=== PATIENT | male | born 1995 | race Caucasian/White ===

== ENCOUNTER 2016-12-03 05:54 | Emergency (ER) | payer OTHER ==
[2016-12-03 06:01] VITALS: PULSE 54; RESP 20; TEMP 97
[2016-12-03 06:02] VITALS: BP 121/69
--- NOTE | 2016-12-03 06:14 | ED ---
General Adult HPI - General Chief complaint: Skin/Abscess/Foreign Body Stated complaint: BUG BITES Time Seen by Provider: 12/03/16 06:00 Source: patient, RN notes reviewed Mode of arrival: ambulatory Limitations: no limitations - History of Present Illness Initial comments: This is a 21-year-old male who presents to the emergency department complaining that he has some itching on his right forearm and anterior shins bilaterally. Patient states he thinks the house he stated that might of had bedbugs. Patient states he did not see any bugs but someone else in the house that they did. Patient denies seeing any bugs on his body. Patient also complains of sore throat and some tooth pain. Patient states she has severe dental caries and is supposed to have his teeth pulled. She denies any fever. Patient states he does feel some inflamed lymph nodes in his neck. Patient denies any fever chills. Patient denies any other symptoms at this time. - Related Data Previous Rx's Medication Instructions Recorded Amoxicillin 500 mg PO Q8H #30 capsule 12/03/16 Allergies Allergy/AdvReac Type Severity Reaction Status Date / Time venom-honey bee Allergy Swelling Verified 12/03/16 06:01 [bee venom (honey bee)] Review of Systems ROS Statement: Those systems with pertinent positive or pertinent negative responses have been documented in the HPI. ROS Other: All systems not noted in ROS Statement are negative. Past Medical History Past Medical History: No Reported History Additional Past Medical History / Comment(s): ADHD History of Any Multi-Drug Resistant Organisms: None Reported Past Surgical History: No Surgical Hx Reported Past Psychological History: ADD/ADHD, Anxiety, Bipolar, Depression, Schizophrenia Smoking Status: Current every day smoker Past Alcohol Use History: None Reported Past Drug Use History: Marijuana General Exam - General Exam Comments Initial Comments: GENERAL: Patient is well-developed and well-nourished. Patient is nontoxic and well- hydrated and is in mild distress. ENT: Neck is soft and supple. No significant lymphadenopathy is noted. Oropharynx is clear. Moist mucous membranes. Patient's teeth have severe caries a few are very tender. EYES: The sclera were anicteric and conjunctiva were pink and moist. Extraocular movements were intact and pupils were equal round and reactive to light. Eyelids were unremarkable. PULMONARY: Unlabored respirations. Good breath sounds bilaterally. No audible rales rhonchi or wheezing was noted. CARDIOVASCULAR: There is a regular rate and rhythm without any murmurs gallops or rubs. ABDOMEN: Soft and nontender with normal bowel sounds. No palpable organomegaly was noted. There is no palpable pulsatile mass. SKIN: Patient has some areas of superficial abrasions appears to be from scratching on the right forearm and anterior shins bilaterally NEUROLOGIC: Patient is alert and oriented x3. Cranial nerves II through XII are grossly intact. Motor and sensory are also intact. Normal speech, volume and content. Symmetrical smile. MUSCULOSKELETAL: Normal extremities with adequate strength and full range of motion. No lower extremity swelling or edema. No calf tenderness. LYMPHATICS: No significant lymphadenopathy is noted PSYCHIATRIC: Normal psychiatric evaluation. Limitations: no limitations Course Vital Signs 12/03/16 05:55 Temperature 97 F L Pulse Rate 54 L Respiratory 20 Rate Blood Pressure 121/69 O2 Sat by Pulse 98 Oximetry Disposition Clinical Impression: Dental infection Disposition: HOME SELF-CARE Instructions: Dental Caries (ED), Toothache (ED) Prescriptions: Amoxicillin 500 mg PO Q8H #30 capsule Referrals: Brett Rodriguez DO [Primary Care Provider] - 1-2 days Time of Disposition: 06:13
== END 2016-12-03 06:20 | disposition home or self-care (01) ==
LOC: EC 05:54
DX: S50.811A Abrasion of right forearm, initial encounter (principal); S80.811A Abrasion, right lower leg, initial encounter; S80.812A Abrasion, left lower leg, initial encounter; K04.7 Periapical abscess without sinus; K02.9 Dental caries, unspecified; J02.9 Acute pharyngitis, unspecified; F17.200 Nicotine dependence, unspecified, uncomplicated; Z91.030 Bee allergy status; W57.XXXA Bitten or stung by nonvenomous insect and other nonvenomous arthropods, initial encounter
CPT/HCPCS: 99282

== ENCOUNTER 2017-01-02 01:16 | Emergency (ER) | payer OTHER ==
[2017-01-02 01:22] VITALS: RESP 18
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
--- NOTE | 2017-01-02 03:57 | CT ---
EXAM: CT Head Without Intravenous Contrast. CLINICAL HISTORY: Reason: Pain TECHNIQUE: Axial computed tomography images of the head/brain without intravenous contrast. CTDI is by 7.4 mGy and DLP is 995.5 mGy-cm This CT exam was performed using one or more of the following dose reduction techniques: automated exposure control, adjustment of the mA and/or kV according to patient size, and/or use of iterative reconstruction technique. COMPARISON: CT dated 03/08/2016 FINDINGS: Brain: Unremarkable. No hemorrhage. No significant white matter disease. No edema. Ventricles: Unremarkable. No ventriculomegaly. Bones/joints: Unremarkable. No acute fracture. Soft tissues: Unremarkable. Sinuses: Unremarkable as visualized. No acute sinusitis. Mastoid air cells: Unremarkable as visualized. No mastoid effusion. IMPRESSION: Normal head/brain CT. EXAM: CT Cervical Spine Without Intravenous Contrast. CLINICAL HISTORY: Reason: Pain TECHNIQUE: Axial computed tomography images of the cervical spine without intravenous contrast. CTDI is 14.1 mGy and DLP is 321.2 mGy-cm This CT exam was performed using one or more of the following dose reduction techniques: automated exposure control, adjustment of the mA and/or kV according to patient size, and/or use of iterative reconstruction technique. COMPARISON: CT dated 03/08/2016 FINDINGS: Vertebrae: Reversal the normal cervical lordosis, likely positional. No acute fracture. Discs/spinal canal/neural foramina: No acute findings. No spinal canal stenosis. Soft tissues: Unremarkable. Lung apices: Biapical pleural-parenchymal scarring. IMPRESSION: No acute findings.
[2017-01-02 04:06] VITALS: BP 118/61; PULSE 78; TEMP 97.9
== END 2017-01-02 04:06 | disposition home or self-care (01) ==
LOC: EC 01:16
DX: S16.1XXA Strain of muscle, fascia and tendon at neck level, initial encounter (principal); S00.03XA Contusion of scalp, initial encounter; R11.2 Nausea with vomiting, unspecified; F17.200 Nicotine dependence, unspecified, uncomplicated; Z91.030 Bee allergy status; X58.XXXA Exposure to other specified factors, initial encounter
CPT/HCPCS: 70450; 72125; 99284

== ENCOUNTER 2017-02-16 03:00 | Emergency (ER) | payer OTHER ==
[2017-02-16 03:09] VITALS: PULSE 54; RESP 16
[2017-02-16] MEDS ORDERED: IBUPROFEN 600 MG STARTER PACK 4 TAB BTL PO STA (03:30)
[2017-02-16] MEDS ORDERED: ACETAMINOPHEN TAB 500 MG TAB PO STA (03:30)
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
--- NOTE | 2017-02-16 04:33 | CT ---
EXAM: CT Head Without Intravenous Contrast CLINICAL HISTORY: Reason: Pain TECHNIQUE: Axial computed tomography images of the head/brain without intravenous contrast. Coronal and sagittal reformats were obtained. CTDI is 57.40 MGy and DLP is 1544 mGy-cm. This CT exam was performed using one or more of the following dose reduction techniques: automated exposure control, adjustment of the mA and/or kV according to patient size, and/or use of iterative reconstruction technique. COMPARISON: CT head 03/08/16 FINDINGS: Brain: Unremarkable. No hemorrhage. No significant white matter disease. No edema. Ventricles: Unremarkable. No ventriculomegaly. Bones/joints: Unremarkable. No acute fracture. Soft tissues: Left parietal scalp contusion. Sinuses: Unremarkable as visualized. No acute sinusitis. Mastoid air cells: Unremarkable as visualized. No mastoid effusion. IMPRESSION: 1. No acute intracranial abnormality. 2. Left parietal scalp contusion. No skull fracture.
--- NOTE | 2017-02-16 04:40 | CT ---
EXAM: CT Maxillofacial Without Intravenous Contrast CLINICAL HISTORY: Reason: Pain TECHNIQUE: Axial computed tomography images of the face without intravenous contrast. Coronal and sagittal reformats were obtained. CTDI is 30.60 MGy and DLP is 514.10 MGy-cm. This CT exam was performed using one or more of the following dose reduction techniques: automated exposure control, adjustment of the mA and/or kV according to patient size, and/or use of iterative reconstruction technique. COMPARISON: No relevant prior studies available. FINDINGS: Bones/joints: No acute fracture. Soft tissues: Unremarkable. Orbits: Unremarkable. Sinuses: No air-fluid levels. IMPRESSION: Unremarkable maxillofacial CT.
[2017-02-16 05:26] VITALS: BP 102/50; TEMP 97.6
== END 2017-02-16 05:31 | disposition home or self-care (01) ==
LOC: EC 03:00
DX: S05.12XA Contusion of eyeball and orbital tissues, left eye, initial encounter (principal); R51 Headache; F17.200 Nicotine dependence, unspecified, uncomplicated; Z91.030 Bee allergy status; W10.9XXA Fall (on) (from) unspecified stairs and steps, initial encounter; W22.09XA Striking against other stationary object, initial encounter
CPT/HCPCS: 70450; 70486; 99284

== ENCOUNTER 2017-04-20 06:48 | Emergency (ER) | payer OTHER ==
[2017-04-20 07:41] VITALS: RESP 18
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
[2017-04-20 08:35] LABS: Appearance,Urine Clear (Clear); Bilirubin,Urine Negative (Negative); Glucose,Urine (UA) Negative (Negative); Ketones,Urine 1+ (Negative); Leukocyte Esterase,Urine Negative (Negative); Nitrite,Urine Negative (Negative); Protein,Urine Trace (Negative); Specific Gravity,Urine 1.017 (1.001-1.035); UA Billing (MACRO vs. MICRO) CHEM; Urobilinogen,Urine <2.0 mg/dL (<2.0)
--- NOTE | 2017-04-20 09:01 | US ---
EXAMINATION TYPE: US scrotum with doppler. Grayscale and color Doppler Duplex imaging performed of tamela durant scrotum. DATE OF EXAM: 04/20/2017 COMPARISON: NONE CLINICAL HISTORY: Pain. Left scrotal pain and swelling per patient, states known hernia but not seen during scan EXAM MEASUREMENTS: TESTICLES: Right Testicle: 4.1 x 3.2 x 2.6 cm Left Testicle: 4.7 x 3.0 x 2.5 cm EPIDIDYMIS HEAD: Right Epididymis: 0.8 cm Left Epididymis: 1.0 cm, 0.5cm epididymal cyst seen Doppler performed to assess for testicular vascularity; good bilateral color flow and waveforms are s een. There is no evidence of testicular torsion. Presence of hydroceles: mild on the left Presence of varicoceles: no IMPRESSION: 1. No evidence of testicular torsion during the examination. 2. Incidental note of a benign 5 mm left epididymal cyst. 3. Trace left hydrocele.
[2017-04-20 09:18] VITALS: BP 113/57; PULSE 48; TEMP 97.7
== END 2017-04-20 09:13 | disposition home or self-care (01) ==
LOC: EC 06:48
DX: N50.3 Cyst of epididymis (principal); F17.200 Nicotine dependence, unspecified, uncomplicated; Z91.030 Bee allergy status
CPT/HCPCS: 76870; 81003; 87086; 87491; 87591; 93975; 99284

== ENCOUNTER 2017-04-27 12:40 | Emergency (ER) | payer OTHER ==
[2017-04-27 12:46] VITALS: BP 136/61; PULSE 63; RESP 20; TEMP 98.1
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
== END 2017-04-27 14:25 | disposition left against medical advice (07) ==
LOC: EC 12:40
DX: F32.9 Major depressive disorder, single episode, unspecified (principal); F17.200 Nicotine dependence, unspecified, uncomplicated; Z91.030 Bee allergy status; Z53.29 Procedure and treatment not carried out because of patient's decision for other reasons
CPT/HCPCS: 80306; 82075; 99284

== ENCOUNTER 2017-05-16 23:50 | Inpatient (IN) | payer MEDICAID, OTHER ==
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
[2017-05-17] MEDS ORDERED: MAG HYDROX/AL HYDROX/SIMETH 30 ML CUP PO PRN (02:13)
[2017-05-17] MEDS ORDERED: MAGNESIUM HYDROXIDE 2,400 MG/10 ML CUP PO PRN (02:13)
[2017-05-17] MEDS ORDERED: ZIPRASIDONE 20 MG VIAL IM PRN (02:13)
[2017-05-17] MEDS ORDERED: LORazepam 2 MG/ML SYRINGE IM PRN (02:21)
[2017-05-17] MEDS ORDERED: NICOTINE 14MG/24HR PATCH TRANSDERM SCH (09:00)
[2017-05-17] MEDS: risperiDONE 0.5 MG TAB PO SCH ×2 (13:11→20:53)
[2017-05-17] MEDS: NICOTINE POLACRILEX 2 MG GUM BUCCAL PRN ×2 (13:32→20:53)
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
[2017-05-17] MEDS ORDERED: NICOTINE 21MG/24HR PATCH TRANSDERM SCH (14:00)
[2017-05-17] MEDS: traZODone HCL 50 MG TAB PO SCH (20:53)
[2017-05-17 21:24] VITALS: BMI 19.5
[2017-05-18] MEDS: NICOTINE POLACRILEX 2 MG GUM BUCCAL PRN (08:32)
[2017-05-18] MEDS: risperiDONE 0.5 MG TAB PO SCH ×2 (08:32→20:57)
[2017-05-18 08:42] LABS: Basophils # (A) 0.1 k/uL (0-0.2); Basophils % (A) 1 %; CH 33.5; CHCM 35.9; Eosinophils # (A) 0.4 k/uL (0-0.7); Eosinophils % (A) 6 %; HCT 46.6 % (39.0-53.0); HDW 2.42; HGB 16.3 gm/dL (13.0-17.5); Luc # (Auto) 0.12; Luc % (Auto) 2; Lymphocytes # (A) 2.1 k/uL (1.0-4.8); Lymphocytes % (A) 35 %; MCH 32.8 pg (25.0-35.0); MCV 93.7 fL (80.0-100.0); Mean Platelet Volume 7.7; Monocytes # (A) 0.4 k/uL (0-1.0); Monocytes % (A) 6 %; Neutrophils % (A) 50 %; RBC 4.97 m/uL (4.30-5.90); RDW 13.2 % (11.5-15.5); WBC 6.1 k/uL (3.8-10.6); WBC (Perox) 5.67
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
[2017-05-18 09:04] LABS: Anion Gap 9 mmol/L; Blood Urea Nitrogen 12 mg/dL (9-20); Calcium 9.4 mg/dL (8.4-10.2); Carbon Dioxide 25 mmol/L (22-30); Chloride 107 mmol/L (98-107); Glucose 77 mg/dL (74-99); Non-African American GFR(MDRD) >60 (>60 ml/min/1.73 sqM); Potassium 4.9 mmol/L (3.5-5.1); Sodium 141 mmol/L (137-145)
--- NOTE | 2017-05-18 13:17 | P.PN ---
Progress Note - Text Interval History: This is a 21-year-old male who was seen today and reports that he is doing slightly better, he states that the auditory hallucinations have decreased a bit but he did have one "paranoia" yesterday but states he was able to not act on his thoughts that people were talking about him. Patient reports that he slept well last evening and is eating well. He states he is less angry and irritable. He denies any suicidal or homicidal thoughts currently. He reports no side effects from the medication. Mental Status: Appearance/Attitude: Patient is appropriately dressed, makes good eye contact and is cooperative. Behavior: Patient does not display any psychomotor agitation or retardation. Speech/Language: Patient's speech is spontaneous and of normal volume and rhythm and he is coherent. Thought Process: Patient was goal-directed and there is no evidence of circumstantial or tangential thought and no loose associations or flight of ideas. Thought Content: Patient denies any visual hallucinations, he states his auditory hallucinations have decreased a bit. He states he had one episode yesterday where he thought people were talking about him but was able to not act on the thoughts and see that it was not true. Patient states that he is less angry and irritable. He reports he is sleeping well and eating well. Suicidal/Homicidal Ideation: Patient denies any suicidal or homicidal ideation currently. Sensorium/Cognition: Patient is alert and oriented to person, place, and time and his memory is grossly intact. Mood/Affect: Patient's mood is less guarded and his affect is appropriate. Insight/Judgement: Patient's insight and judgment are limited. Assessment: Patient reports improvement with the beginning of Risperdal and trazodone, he slept better and states the auditory hallucinations are decreasing and he is able to question the paranoid ideation that he occasionally has. Patient reports no side effects from the medication. He is less angry and irritable on the unit and has been attending groups and activities. Plan: Patient and I discussed continuing Risperdal 0.5 mg twice a day and if the auditory hallucinations persist over the weekend escape dose can be increased. Patient is on trazodone 50 mg for sleep and he reports he slept well. Patient continues to require hospitalization to further stabilize his mood and psychotic symptoms.
[2017-05-18] MEDS: LORazepam 1 MG TAB PO PRN (20:57)
[2017-05-18] MEDS: traZODone HCL 50 MG TAB PO SCH (20:57)
[2017-05-18] MEDS: ACETAMINOPHEN TAB 325 MG TAB PO PRN (21:24)
[2017-05-19] MEDS: risperiDONE 0.5 MG TAB PO SCH (08:52)
[2017-05-19] MEDS: ACETAMINOPHEN TAB 325 MG TAB PO PRN (11:27)
[2017-05-19 11:47] LABS: Appearance,Urine Clear (Clear); Bilirubin,Urine Negative (Negative); Glucose,Urine (UA) Negative (Negative); Ketones,Urine Negative (Negative); Leukocyte Esterase,Urine Negative (Negative); Nitrite,Urine Negative (Negative); PH, Urine 6.5 (5.0-8.0); Protein,Urine Negative (Negative); Specific Gravity,Urine 1.003 (1.001-1.035); UA Billing (MACRO vs. MICRO) CHEM; Urobilinogen,Urine <2.0 mg/dL (<2.0)
[2017-05-19] MEDS: LORazepam 1 MG TAB PO PRN (17:39)
[2017-05-19] MEDS: traZODone HCL 50 MG TAB PO SCH (20:49)
[2017-05-19] MEDS: risperiDONE 2 MG TAB PO SCH (20:50)
--- NOTE | 2017-05-20 07:42 | PN ---
PROGRESS NOTE DATE OF SERVICE: 05/19/2017. CHIEF COMPLAINT: The patient was admitted due to auditory hallucinations. He had a poor appetite. He did not feel safe around others as he said he was afraid he will "go off on them." He felt there was "serious things" though could not elaborate. INTERVAL HISTORY: The patient has been doing fair. He had he had some difficulty last evening. He said "my paranoia kicked in." He described having auditory hallucinations. He says there are times when the hallucinations quiet down and then times when they seem to catch up with him. He did receive Haldol and Ativan yesterday. He feels since then he has been doing better. When seen by Dr. Tapia yesterday she felt he had shown some improvement and that he was reporting a decrease in auditory hallucinations and decrease in paranoia. He has been attending groups. He has been on appropriate in his behavior. He continues to say that hallucinations and poor paranoia come and go for him. While he says that he is feeling better, he believes that an increase in his medication that could help. He has not had change in his general health. He tolerates his psychotropic medications. MENTAL STATUS: Patient gave good eye contact. Psychomotor activity was a little restless. Speech was clear. He answered questions with direct responses. His affect was a little constricted. His mood was quiet. He did appear to be distressed. There was no outward signs of thought disorder. ASSESSMENT: I will continue the current diagnosis and the treatment plan. I will increase his Risperdal to 2 mg twice a day. The patient has been making progress and is hopeful to be discharged sometime toward the middle of next week. MMODL / IJN: [id number] /
[2017-05-20] MEDS: risperiDONE 2 MG TAB PO SCH ×2 (08:25→20:02)
--- NOTE | 2017-05-20 14:36 | PN ---
PROGRESS NOTE DATE OF SERVICE: 05/20/2017 CHIEF COMPLAINT: The patient was admitted due to auditory hallucinations. He had poor appetite. He did not feel safe around others as he said he was afraid he will "go off on them." He felt there was "serious things" although he could not elaborate. INTERVAL HISTORY: Patient has been doing fairly well. He does have some inappropriate behavior where he can get impulsive and intense. For the most part, he responds well to staff support. He says that he had a fairly good evening last evening. He slept well last night. Today he has been up. He has been attending groups. He says he feels much better. He thinks that most of his hallucinations have quieted down. He has a very positive outlook. He has been cooperative. He comes out in the day area. He socializes with others. He has not had change in his general health. He tolerates his psychotropic medications. MENTAL STATUS: Patient gave good eye contact. Psychomotor activity was a little restless. His thoughts were clear. He has a good range of affect. He smiled. His mood was even. He was not distressed. ASSESSMENT: I will continue the current diagnosis and treatment plan. I will continue psychotropic medications the same. Patient appears to be making progress. I would look to discharge the patient early in the week. If he continues to do well. MMGUANAKITOL / ROBERTN: [id number] /
[2017-05-20] MEDS: LORazepam 1 MG TAB PO PRN (17:21)
[2017-05-20] MEDS: NICOTINE POLACRILEX 2 MG GUM BUCCAL PRN (17:21)
[2017-05-20] MEDS: traZODone HCL 50 MG TAB PO SCH (20:02)
[2017-05-20] MEDS ORDERED: RX INFO: IV CONTRAST WAS GIVEN 1 EACH MISC MISCELLANE PRN ×2 (21:53→21:57)
[2017-05-20] MEDS ORDERED: IOHEXOL 350 MG/ML 25 ML BOTTLE (ORAL USE) PO PRN (21:57)
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
[2017-05-21 06:35] VITALS: TEMP 97.6
[2017-05-21] MEDS: risperiDONE 2 MG TAB PO SCH ×2 (08:50→20:01)
--- NOTE | 2017-05-21 11:43 | P.PN ---
Progress Note - Text Interval History: Patient is a 21-year-old male who was seen today and his medications have been increased and he reports that he is doing much better. He reports that he is no longer hearing voices and is feeling calm and his thinking is much clearer. He states he is no longer feeling angry and has not gotten into any arguments with anyone while he is been on the inpatient unit. He reports that he is not feeling depressed and has no suicidal thoughts. States he is sleeping well and is interested in returning to live with his grandmother. Patient reports no side effects from the medication. Mental Status: Appearance/Attitude: Patient is appropriately dressed, makes intermittent eye contact and is cooperative. Behavior: Patient does not display any psychomotor agitation or retardation. Speech/Language: Patient's speech is spontaneous and of normal volume and rhythm and he is coherent. Thought Process: Patient is goal-directed, is no evidence of circumstantial or tangential thought and no loose associations or flight of ideas. Thought Content: Patient denies any auditory or visual hallucinations, no paranoid or delusional ideation was elicited. Patient states he is thinking much clearer, he is not having any feelings of anger and states he has not been arguing with anyone. He reports he is eating and sleeping well. Suicidal/Homicidal Ideation: Patient denies any current suicidal or homicidal ideation. Sensorium/Cognition: Patient is alert and oriented to person, place, and time and his memory is grossly intact. Mood/Affect: Patient's mood is euthymic and his affect is appropriate. Insight/Judgement: Patient's insight and judgment are limited. Assessment: Patient reports doing better on the increase in the Risperdal and thinks this was his prior dose. He states he is sleeping and eating well. Patient reports no longer having any auditory hallucinations and no feelings of anger. He states he is no longer feeling depressed and has no current suicidal thoughts. Patient reports no complaints of side effects from the medication. Patient has been attending groups and activities. Plan: Patient will continue on Risperdal 2 mg twice a day and trazodone 50 mg at bedtime. Patient and I discussed discharge either Sunday or Sunday with follow-up at [facility]. Patient has a guardian and states he will return to live with his grandmother.
[2017-05-21] MEDS: LORazepam 1 MG TAB PO PRN (19:43)
[2017-05-21] MEDS: traZODone HCL 50 MG TAB PO SCH (20:01)
[2017-05-22] MEDS: risperiDONE 2 MG TAB PO SCH (09:15)
[2017-05-22 09:17] VITALS: BP 108/57; PULSE 103; RESP 18
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
== END 2017-05-22 11:52 | disposition home or self-care (01) | DRG 885 ==
LOC: EC 23:50 → 3MHU 05-17 02:01
PROVIDERS: ADMIT Psychiatry & Neurology Psychiatry; ATTEND Psychiatry & Neurology Psychiatry
DX: F34.81 Disruptive mood dysregulation disorder (principal); R45.851 Suicidal ideations; F32.9 Major depressive disorder, single episode, unspecified; F12.988 Cannabis use, unspecified with other cannabis-induced disorder; F17.210 Nicotine dependence, cigarettes, uncomplicated; F41.9 Anxiety disorder, unspecified; Z91.5 Personal history of self-harm; K40.90 Unilateral inguinal hernia, without obstruction or gangrene, not specified as recurrent; G47.00 Insomnia, unspecified
CPT/HCPCS: 80048; 80306; 81003; 82075; 84443; 85025; 99285

== ENCOUNTER 2017-06-03 07:11 | Emergency (ER) | payer OTHER ==
[2017-06-03 07:24] VITALS: BP 123/70; PULSE 70; RESP 20; TEMP 97.8
[2017-06-03] MEDS ORDERED: IBUPROFEN 800 MG TAB PO STA (07:37)
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
--- NOTE | 2017-06-03 08:14 | XR ---
EXAMINATION TYPE: XR chest 2V DATE OF EXAM: 06/03/2017 HISTORY: cough. REFERENCE: Previous study dated 07/01/2012. FINDINGS: The lungs are clear. Pleural spaces are clear. Heart size is normal. IMPRESSION: NORMAL CHEST.
--- NOTE | 2017-06-03 08:14 | XR ---
EXAMINATION TYPE: XR clavicle RT , 2 VIEWS DATE OF EXAM ORDERED: 06/03/2017 HISTORY: Pain. COMPARISON: None. FINDINGS: No fracture or other acute abnormality is seen. The coracoclavicular distance is normal. IMPRESSION: NORMAL RIGHT SHOULDER.
--- NOTE | 2017-06-03 08:16 | XR ---
EXAMINATION TYPE: XR scapula RT , 2 VIEWS DATE OF EXAM ORDERED: 06/03/2017 HISTORY: Pain. COMPARISON: None. FINDINGS: No fracture, dislocation or other acute osseous lesion is seen. IMPRESSION: NORMAL RIGHT SCAPULA.
--- NOTE | 2017-06-03 08:17 | XR ---
EXAMINATION TYPE: XR shoulder complete RT , 2 VIEWS DATE OF EXAM ORDERED: 06/03/2017 HISTORY: Pain. COMPARISON: None. FINDINGS: No fracture, dislocation or other acute abnormality is seen. The coracoclavicular distance is normal. IMPRESSION: NORMAL RIGHT SHOULDER.
[2017-06-03] MEDS ORDERED: DIPH,PERTUS(ACELL)TETVAC-LF 0.5 ML VIAL IM ONE (08:30)
== END 2017-06-03 08:43 | disposition home or self-care (01) ==
LOC: EC 07:11
DX: S46.911A Strain of unspecified muscle, fascia and tendon at shoulder and upper arm level, right arm, initial encounter (principal); S50.811A Abrasion of right forearm, initial encounter; R40.2412 Glasgow coma scale score 13-15, at arrival to emergency department; F17.200 Nicotine dependence, unspecified, uncomplicated; Z91.030 Bee allergy status; Z53.20 Procedure and treatment not carried out because of patient's decision for unspecified reasons; V18.4XXA Pedal cycle driver injured in noncollision transport accident in traffic accident, initial encounter; Y92.410 Unspecified street and highway as the place of occurrence of the external cause; Y93.55 Activity, bike riding
CPT/HCPCS: 71020; 99283

== ENCOUNTER 2017-09-06 12:50 | Emergency (ER) | payer OTHER ==
[2017-09-06 13:07] VITALS: BP 138/72; PULSE 89; RESP 16; TEMP 97.5
[2017-09-06] MEDS ORDERED: ACETAMINOPHEN TAB 325 MG TAB PO STA (13:16)
[2017-09-06] MEDS ORDERED: IBUPROFEN 600 MG TAB PO STA (13:16)
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
--- NOTE | 2017-09-06 13:53 | XR ---
EXAMINATION TYPE: XR foot complete RT DATE OF EXAM: 09/06/2017 CLINICAL HISTORY: pain TECHNIQUE: Frontal, lateral and oblique images of the right foot are obtained. COMPARISON: None. FINDINGS: There is no acute fracture/dislocation evident. The joint spaces appear within normal álvarez its. The overlying soft tissue appears unremarkable. IMPRESSION: There is no acute fracture or dislocation. ICD 10 NO FRACTURE, INITIAL EVALUATION
== END 2017-09-06 13:59 | disposition home or self-care (01) ==
LOC: EC 12:50
DX: S90.111A Contusion of right great toe without damage to nail, initial encounter (principal); S90.121A Contusion of right lesser toe(s) without damage to nail, initial encounter; F17.200 Nicotine dependence, unspecified, uncomplicated; Z91.030 Bee allergy status; V03.10XA Pedestrian on foot injured in collision with car, pick-up truck or van in traffic accident, initial encounter
CPT/HCPCS: 99283

== ENCOUNTER 2017-09-30 22:11 | Emergency (ER) | payer OTHER ==
[2017-09-30 22:19] VITALS: BP 121/67; PULSE 74; RESP 18
[2017-09-30] MEDS ORDERED: diphenhydrAMINE 50 MG CAP PO STA (22:50)
[2017-09-30] MEDS ORDERED: FAMOTIDINE 20 MG TAB PO STA (22:50)
[2017-09-30] MEDS ORDERED: predniSONE 20 MG TAB PO STA (22:51)
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
[2017-10-01 00:17] VITALS: TEMP 97.5
== END 2017-10-01 00:13 | disposition home or self-care (01) ==
LOC: EC 22:11
DX: L50.9 Urticaria, unspecified (principal); F20.9 Schizophrenia, unspecified; F31.9 Bipolar disorder, unspecified; F17.200 Nicotine dependence, unspecified, uncomplicated; Z91.030 Bee allergy status; Z79.899 Other long term (current) drug therapy
CPT/HCPCS: 99282; J7512

== ENCOUNTER 2017-10-05 18:33 | Emergency (ER) | payer OTHER ==
[2017-10-05 18:40] VITALS: BP 132/70; PULSE 80; RESP 16; TEMP 97.2
[2017-10-05] MEDS ORDERED: PENICILLIN VK 500MG STARTER 4 TAB BTL PO STA (19:04)
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
== END 2017-10-05 19:14 | disposition home or self-care (01) ==
LOC: EC 18:33
DX: K04.7 Periapical abscess without sinus (principal); F12.90 Cannabis use, unspecified, uncomplicated; F17.200 Nicotine dependence, unspecified, uncomplicated; Z91.030 Bee allergy status
CPT/HCPCS: 41800; 99284

== ENCOUNTER 2017-10-08 18:29 | Emergency (ER) | payer OTHER ==
[2017-10-08 19:22] VITALS: RESP 18
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
[2017-10-08 22:21] LABS: Basophils # (A) 0.1 k/uL (0-0.2); Basophils % (A) 1 %; Eosinophils # (A) 0.4 k/uL (0-0.7); Eosinophils % (A) 3 %; HCT 49.9 % (39.0-53.0); HGB 16.8 gm/dL (13.0-17.5); Lymphocytes # (A) 3.2 k/uL (1.0-4.8); Lymphocytes % (A) 27 %; MCH 31.1 pg (25.0-35.0); MCHC 33.7 g/dL (31.0-37.0); MCV 92.3 fL (80.0-100.0); Mean Platelet Volume 6.7; Monocytes # (A) 0.8 k/uL (0-1.0); Monocytes % (A) 7 %; Neutrophils # (A) 7.4 k/uL (1.3-7.7); Neutrophils % (A) 62 %; Platelet Count 367 k/uL (150-450); RDW 12.3 % (11.5-15.5); WBC 11.9 k/uL (3.8-10.6)
[2017-10-08 22:36] LABS: ALT 40 U/L (21-72); AST 32 U/L (17-59); Albumin 5.1 g/dL (3.5-5.0); Alkaline Phosphatase 82 U/L (38-126); Anion Gap 13 mmol/L; Blood Urea Nitrogen 15 mg/dL (9-20); Calcium 10.2 mg/dL (8.4-10.2); Carbon Dioxide 29 mmol/L (22-30); Chloride 99 mmol/L (98-107); Glucose 82 mg/dL (74-99); Potassium 4.3 mmol/L (3.5-5.1); Sodium 141 mmol/L (137-145); Total Bilirubin 0.4 mg/dL (0.2-1.3); Total Protein 8.3 g/dL (6.3-8.2)
[2017-10-08 23:27] VITALS: BP 118/74; PULSE 60; TEMP 97.7
== END 2017-10-08 23:27 | disposition home or self-care (01) ==
LOC: EC 18:29
DX: R25.1 Tremor, unspecified (principal); F17.200 Nicotine dependence, unspecified, uncomplicated; Z91.030 Bee allergy status
CPT/HCPCS: 36415; 80053; 83605; 85025; 99283

== ENCOUNTER 2017-10-11 20:40 | Emergency (ER) | payer OTHER ==
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
[2017-10-11 21:29] VITALS: BP 115/64; PULSE 94; RESP 17; TEMP 98.4
== END 2017-10-11 21:33 | disposition home or self-care (01) ==
LOC: EC 20:40
DX: K04.7 Periapical abscess without sinus (principal); J01.90 Acute sinusitis, unspecified; F20.9 Schizophrenia, unspecified; F31.9 Bipolar disorder, unspecified; F17.200 Nicotine dependence, unspecified, uncomplicated; Z91.030 Bee allergy status; Z79.899 Other long term (current) drug therapy
CPT/HCPCS: 99283

== ENCOUNTER 2017-11-14 04:48 | Emergency (ER) | payer OTHER ==
[2017-11-14] MEDS ORDERED: AMOXICILLIN 875 MG TAB PO STA (05:29)
[2017-11-14] MEDS ORDERED: IBUPROFEN 600 MG TAB PO STA (05:29)
--- NOTE | 2017-11-14 05:42 | CT ---
EXAM: CT Maxillofacial Without Intravenous Contrast CLINICAL HISTORY: ITS.REASON CT Reason: Pain TECHNIQUE: Axial computed tomography images of the face without intravenous contrast. CTDI is 32.10 mGy and DLP is 654.40 mGy-cm. This CT exam was performed using one or more of the following dose reduction techniques: automated exposure control, adjustment of the mA and/or kV according to patient size, and/or use of iterative reconstruction technique. COMPARISON: 02/16/17 FINDINGS: Bones/joints: No acute fracture. Soft tissues: Unremarkable. Orbits: Unremarkable. Sinuses: Mucosal thickening of the left maxillary sinus. No air-fluid levels. Dental: Dental caries noted in the left maxillary teeth. IMPRESSION: No evidence of fracture or bone destruction. Mucosal thickening of the left maxillary sinus suggesting sinusitis. Correlate clinically. Dental caries noted in the left maxillary teeth.
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
[2017-11-14 06:14] VITALS: BP 111/58; PULSE 50; RESP 18; TEMP 97
== END 2017-11-14 06:22 | disposition home or self-care (01) ==
LOC: EC 04:48
DX: J32.0 Chronic maxillary sinusitis (principal); K02.9 Dental caries, unspecified; F20.9 Schizophrenia, unspecified; F31.9 Bipolar disorder, unspecified; F17.200 Nicotine dependence, unspecified, uncomplicated; Z79.899 Other long term (current) drug therapy; Z91.030 Bee allergy status
CPT/HCPCS: 70486; 99283

== ENCOUNTER 2017-11-25 19:29 | Emergency (ER) | payer OTHER ==
[2017-11-25 19:55] VITALS: BP 115/60; PULSE 78; RESP 18; TEMP 98
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
== END 2017-11-25 20:15 | disposition home or self-care (01) ==
LOC: EC 19:29
DX: R63.0 Anorexia (principal); F31.9 Bipolar disorder, unspecified; F90.9 Attention-deficit hyperactivity disorder, unspecified type; F41.9 Anxiety disorder, unspecified; F20.9 Schizophrenia, unspecified; F17.200 Nicotine dependence, unspecified, uncomplicated; Z79.899 Other long term (current) drug therapy; Z91.030 Bee allergy status
CPT/HCPCS: 99283

== ENCOUNTER 2017-12-29 02:56 | Emergency (ER) | payer OTHER ==
[2017-12-29] MEDS ORDERED: IBUPROFEN 600 MG TAB PO STA (03:26)
[2017-12-29] MEDS ORDERED: diphenhydrAMINE 25 MG CAP PO STA (03:26)
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
--- NOTE | 2017-12-29 04:33 | XR ---
EXAM: XR Right Ankle Complete, 3 or More Views CLINICAL HISTORY: ITS.REASON XR Reason: Pain TECHNIQUE: Frontal, lateral and oblique views of the right ankle. COMPARISON: None. FINDINGS: Bones/joints: Unremarkable. No acute fracture. No dislocation. Soft tissues: Unremarkable. IMPRESSION: Normal right ankle x-rays.
[2017-12-29 04:39] VITALS: BP 112/68; PULSE 80; RESP 18; TEMP 97.8
== END 2017-12-29 04:46 | disposition home or self-care (01) ==
LOC: EC 02:56
DX: S93.401A Sprain of unspecified ligament of right ankle, initial encounter (principal); T14.8XXA Other injury of unspecified body region, initial encounter; Z71.1 Person with feared health complaint in whom no diagnosis is made; F90.9 Attention-deficit hyperactivity disorder, unspecified type; F31.9 Bipolar disorder, unspecified; F20.9 Schizophrenia, unspecified; F41.9 Anxiety disorder, unspecified; F17.200 Nicotine dependence, unspecified, uncomplicated; Z79.899 Other long term (current) drug therapy; Z91.030 Bee allergy status; W57.XXXA Bitten or stung by nonvenomous insect and other nonvenomous arthropods, initial encounter
CPT/HCPCS: 99283

== ENCOUNTER 2017-12-29 22:03 | Inpatient (IN) | payer MEDICAID, OTHER ==
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
[2017-12-29 22:46] LABS: Amphetamine Screen,Urine Not Detected (NotDetected); Barbiturate Screen,Urine Not Detected (NotDetected); Benzodiazepines Screen,Urine Not Detected (NotDetected); Cocaine Screen,Urine Detected (NotDetected); Methadone Screen, Urine Not Detected (NotDetected); Opiate Screen,Urine Not Detected (NotDetected); Oxycodone Screen, Urine Not Detected (NotDetected); Phencyclidine Screen,Urine Not Detected (NotDetected); Tricyclic Antidepressant,Urine Not Detected (NotDetected); Urn Cannabinoid Scrn Detected (NotDetected)
[2017-12-30] MEDS ORDERED: ACETAMINOPHEN TAB 325 MG TAB PO PRN (01:15)
[2017-12-30] MEDS ORDERED: MAG HYDROX/AL HYDROX/SIMETH 30 ML CUP PO PRN (01:15)
[2017-12-30] MEDS ORDERED: MAGNESIUM HYDROXIDE 2,400 MG/10 ML CUP PO PRN (01:15)
[2017-12-30] MEDS ORDERED: LORazepam 2 MG/ML INJ IM PRN (01:21)
[2017-12-30 02:25] VITALS: BMI 20.2
[2017-12-30] MEDS: NICOTINE 7MG/24HR PATCH TRANSDERM SCH (08:45)
[2017-12-30] MEDS: LORazepam 1 MG TAB PO PRN ×2 (09:41→16:53)
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
[2017-12-30] MEDS: ZIPRASIDONE 20 MG VIAL IM PRN ×2 (17:08→18:19)
[2017-12-30] MEDS: traZODone HCL 50 MG TAB PO SCH (20:04)
[2017-12-30] MEDS: risperiDONE 2 MG TAB PO SCH (20:04)
[2017-12-31] MEDS: risperiDONE 2 MG TAB PO SCH ×3 (01:16→22:17)
[2017-12-31] MEDS: traZODone HCL 50 MG TAB PO SCH ×2 (01:16→22:17)
[2017-12-31] MEDS: LORazepam 1 MG TAB PO PRN ×3 (03:08→15:44)
[2017-12-31] MEDS: NICOTINE 7MG/24HR PATCH TRANSDERM SCH (08:14)
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
[2017-12-31 09:44] LABS: Basophils % (A) 0 %; Eosinophils # (A) 0.3 k/uL (0-0.7); Eosinophils % (A) 3 %; HCT 48.7 % (39.0-53.0); HGB 16.5 gm/dL (13.0-17.5); Lymphocytes # (A) 1.6 k/uL (1.0-4.8); Lymphocytes % (A) 16 %; MCH 31.1 pg (25.0-35.0); MCHC 33.9 g/dL (31.0-37.0); MCV 91.6 fL (80.0-100.0); Mean Platelet Volume 7.5; Monocytes # (A) 0.5 k/uL (0-1.0); Monocytes % (A) 5 %; Neutrophils # (A) 7.4 k/uL (1.3-7.7); Neutrophils % (A) 75 %; Platelet Count 322 k/uL (150-450); RBC 5.31 m/uL (4.30-5.90); RDW 12.3 % (11.5-15.5); WBC 9.9 k/uL (3.8-10.6)
[2017-12-31 10:20] LABS: ALT 25 U/L (21-72); AST 43 U/L (17-59); Albumin 4.9 g/dL (3.5-5.0); Alkaline Phosphatase 74 U/L (38-126); Anion Gap 14 mmol/L; Blood Urea Nitrogen 14 mg/dL (9-20); Calcium 10.3 mg/dL (8.4-10.2); Carbon Dioxide 27 mmol/L (22-30); Chloride 104 mmol/L (98-107); Cholesterol 113 mg/dL (<200); Glucose 109 mg/dL (74-99); HDL Cholesterol 42 mg/dL (40-60); LDL Cholesterol,Calculated 52 mg/dL (0-99); Potassium 4.6 mmol/L (3.5-5.1); Sodium 145 mmol/L (137-145); Total Bilirubin 0.6 mg/dL (0.2-1.3); Total Protein 8.2 g/dL (6.3-8.2); Triglycerides 96 mg/dL (<150)
[2017-12-31 16:27] LABS: Amorphous Sediment,Urine Moderate /hpf; Appearance,Urine Turbid (Clear); Bilirubin,Urine Negative (Negative); Blood,Urine Negative (Negative); Color,Urine Yellow; Glucose,Urine (UA) Negative (Negative); Ketones,Urine Negative (Negative); Leukocyte Esterase,Urine Negative (Negative); Nitrite,Urine Negative (Negative); PH, Urine 7.5 (5.0-8.0); Protein,Urine Trace (Negative); Specific Gravity,Urine 1.023 (1.001-1.035); Urobilinogen,Urine <2.0 mg/dL (<2.0)
[2017-12-31 16:35] LABS: Hepatitis A Antibody IgM Non-Reactive (Non-Reactive); Hepatitis B Core IgM Non-Reactive (Non-Reactive)
[2017-12-31 16:51] LABS: HIV AB P24 Non-Reactive (Non-Reactive); HIV P24 AG Non-Reactive (Non-Reactive)
[2017-12-31 19:43] LABS: Hemoglobin A1C 5.1 % (4.0-6.0)
[2018-01-01 06:37] VITALS: TEMP 97.5
[2018-01-01] MEDS: risperiDONE 2 MG TAB PO SCH ×2 (08:21→20:00)
[2018-01-01] MEDS: NICOTINE 7MG/24HR PATCH TRANSDERM SCH (08:21)
--- NOTE | 2018-01-01 09:47 | P.PN ---
Progress Note - Text Progress Note Date: 01/01/18 Patient was seen for a follow-up examination. He said he has been taking his medications, slept well last night, is not thinking about suicide, does not hear voices anymore etc. He finally agreed to take Risperdal Consta shot since he has not been complying with outpatient treatment. He has been attending his groups and socializes with some of his peers. According to [facility] patient's IQ was estimated at 65. This is a white ambulatory male with fair hygiene. He does not show any psychomotor agitation or retardation. His speech is spontaneous and goal- directed. His mood is euthymic and affect is appropriate to the thought content. He denies hallucinations. But he is still talking about having several holes in his head which has interfered with his memory. He denies suicide and homicide thoughts. He is oriented to the place but not for the time. His calculations are poor. Plan: Continue groups and other therapies. Continue risperidone 2 mg twice a day and trazodone 50 mg at bedtime. Consider Kalpesh Lancaster before he is discharged.
[2018-01-01] MEDS: CLINDAMYCIN 150 MG CAP PO SCH ×2 (17:10→20:01)
[2018-01-01] MEDS: traZODone HCL 50 MG TAB PO SCH (20:01)
[2018-01-02] MEDS: CLINDAMYCIN 150 MG CAP PO SCH ×2 (08:16→14:30)
[2018-01-02] MEDS: risperiDONE 2 MG TAB PO SCH (08:16)
[2018-01-02] MEDS: NICOTINE 7MG/24HR PATCH TRANSDERM SCH (08:16)
[2018-01-02 09:49] VITALS: BP 130/60; PULSE 95; RESP 18
[2018-01-02] MEDS: LORazepam 1 MG TAB PO PRN (10:59)
--- NOTE | 2018-01-02 11:45 | P.DS ---
Providers Date of admission: 12/30/17 00:27 Expected date of discharge: 01/02/18 Attending physician: Janeth Best Consults: 12/30/17 01:15 Consult Physician Routine Consulting Provider: Noa Jaquez Consult Reason/Comments: medical management Do you want consulting provider notified?: Already Contacted Primary care physician: Stated None Hospital Course: Patient had his psychiatric examination, physical examination and psychosocial evaluation. His home medications of risperidone and trazodone were continued after psychiatric examination. Patient did well on these medications without any adverse effects. His mood became euthymic and he became free of suicide thoughts. He also agreed to take Risperdal Consta and he received his first shot of 37.5 mg IM yesterday. He did not have any adverse effects from the medication. He attended groups, socialized with peers and interacted with staff etc. He agreed with his guardian grandmother and the social work specialist to [facility] [place] [facility] a couple of nights and then go back to stay with grandmother. In view of all these it was agreed to discharge him. Apparently he got in touch with the physician who was here to see another patient and reported that he was having tooth ache. He was prescribed clindamycin for case and possible infection.. Condition on discharge: This is a white ambulatory male with adequate hygiene. He does not show any psychomotor agitation or retardation. His speech is spontaneous relevant and goal-directed. His mood is euthymic and affect is appropriate. He denies hallucinations, delusional thinking, suicidal and homicidal thoughts. He is well oriented with adequate memory concentration general fund of knowledge etc. his insight and judgment have improved quite a bit. Diagnosis on discharge: Schizoaffective disorder bipolar type F 25. Cannabis use disorder severe F 12.20. Antisocial personality disorder F 60.2. Borderline intellectual functioning. ALLERGY to bee stings. Dental caries with possible infection. Patient was advised and agreed to take his medications as prescribed, not to drink alcohol or use drugs, learn better coping skills through therapy, to seek drug counseling, not to drive or operate machinery if he feels sleepy, to see the dentist regarding dental caries, to call his psychiatrist or therapist if he develops suicidal or homicidal thoughts and if he cannot get hold of them to go to nearest ER. Plan - Discharge Summary New Discharge Prescriptions: New Clindamycin [Cleocin] 300 mg PO QID 7 Days #28 cap risperiDONE [RisperDAL] 2 mg PO BID 30 Days #60 tab traZODone HCL [Desyrel] 50 mg PO HS 30 Days #30 tab Discontinued traZODone HCL [Desyrel] 100 mg PO HS #30 tab risperiDONE [RisperDAL] 2 mg PO BID@0800,1600 Amoxic-Pot Clav 875-125Mg [Augmentin 875-125] 1 tab PO Q12HR #20 tablet Ibuprofen [Motrin] 600 mg PO Q8HR PRN #24 tab PRN Reason: Pain Amoxic-Pot Clav 875-125Mg [Augmentin 875-125] 1 tab PO Q12HR #20 tablet Oxymetazoline HCl [Afrin 0.05%] 1 spray EA NOSTRIL Q8H #15 ml Ibuprofen [Motrin] 600 mg PO Q8HR PRN #30 tab PRN Reason: Pain Discharge Medication List Clindamycin [Cleocin] 300 mg PO QID 7 Days #28 cap 01/02/18 [Rx] risperiDONE [RisperDAL] 2 mg PO BID 30 Days #60 tab 01/02/18 [Rx] traZODone HCL [Desyrel] 50 mg PO HS 30 Days #30 tab 01/02/18 [Rx] Follow up Appointment(s)/Referral(s): [facility] [Outside] - 1 Week (Please complete walk-in intake within 48 hours of hospital discharge. Hours: Wed, Thurs, Fri 830-3) None,Stated [Primary Care Provider] - 1-2 days
[2018-01-02 16:06] LABS: C. trachomatis,PCR Negative (Neg,Equiv); Chlamydia trachomatis Source Urine; N. gonorrhoeae,PCR Negative (Neg,Equiv); Neisseria Source Urine
== END 2018-01-02 13:55 | disposition home or self-care (01) | DRG 885 ==
LOC: EC 22:03 → 3MHU 12-30 00:27
PROVIDERS: ADMIT Psychiatry & Neurology Psychiatry; ATTEND Psychiatry & Neurology Psychiatry
DX: F25.0 Schizoaffective disorder, bipolar type (principal); R45.851 Suicidal ideations; F34.81 Disruptive mood dysregulation disorder; F17.210 Nicotine dependence, cigarettes, uncomplicated; F60.2 Antisocial personality disorder; K02.9 Dental caries, unspecified; F90.9 Attention-deficit hyperactivity disorder, unspecified type; F41.9 Anxiety disorder, unspecified; I51.7 Cardiomegaly; R41.83 Borderline intellectual functioning; Z79.899 Other long term (current) drug therapy; Z91.030 Bee allergy status; Z65.3 Problems related to other legal circumstances; Z71.6 Tobacco abuse counseling; Z72.51 High risk heterosexual behavior
CPT/HCPCS: 80053; 80061; 80074; 80306; 81001; 82075; 83036; 84443; 85025; 87390; 87491; 87591; 99285

== ENCOUNTER 2018-01-26 09:04 | Emergency (ER) | payer OTHER ==
[2018-01-26 09:14] VITALS: BP 137/77; PULSE 61; RESP 16; TEMP 98
[2018-01-26] MEDS ORDERED: IBUPROFEN 600 MG TAB PO STA (09:37)
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
== END 2018-01-26 09:52 | disposition home or self-care (01) ==
LOC: EC 09:04
DX: K04.7 Periapical abscess without sinus (principal); K02.9 Dental caries, unspecified; F17.200 Nicotine dependence, unspecified, uncomplicated; Z91.030 Bee allergy status
CPT/HCPCS: 99282

== ENCOUNTER 2018-02-26 03:30 | Emergency (ER) | payer OTHER ==
[2018-02-26 03:37] VITALS: BP 154/92; PULSE 44; RESP 18; TEMP 97.8
--- NOTE | 2018-02-26 04:46 | XR ---
EXAMINATION TYPE: XR soft tissue neck DATE OF EXAM: 02/26/2018 COMPARISON: NONE HISTORY: Pain and swelling TECHNIQUE: 2 views FINDINGS: Cervical vertebra have normal alignment. Epiglottis is normal. Prevertebral soft tissues ap pear normal. Subglottic trachea appears normal. IMPRESSION: Negative cervical soft tissue exam.
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
[2018-02-26] MEDS ORDERED: IBUPROFEN 600 MG STARTER PACK 4 TAB BTL PO STA (04:59)
[2018-02-26] MEDS ORDERED: PENICILLIN VK 500MG STARTER 4 TAB BTL PO STA (04:59)
== END 2018-02-26 05:26 | disposition home or self-care (01) ==
LOC: EC 03:30
DX: K02.9 Dental caries, unspecified (principal); F17.200 Nicotine dependence, unspecified, uncomplicated; Z91.030 Bee allergy status
CPT/HCPCS: 70360; 99283

== ENCOUNTER 2018-03-21 00:53 | Emergency (ER) | payer OTHER ==
[2018-03-21 01:04] VITALS: BP 112/65; PULSE 77; RESP 16; TEMP 97.9
[2018-03-21] MEDS ORDERED: PENICILLIN VK 500MG STARTER 4 TAB BTL PO STA (01:45)
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
== END 2018-03-21 02:03 | disposition home or self-care (01) ==
LOC: EC 00:53
DX: S80.262A Insect bite (nonvenomous), left knee, initial encounter (principal); K04.7 Periapical abscess without sinus; K05.10 Chronic gingivitis, plaque induced; S02.5XXA Fracture of tooth (traumatic), initial encounter for closed fracture; F17.200 Nicotine dependence, unspecified, uncomplicated; Z91.030 Bee allergy status; W57.XXXA Bitten or stung by nonvenomous insect and other nonvenomous arthropods, initial encounter
CPT/HCPCS: 99282

== ENCOUNTER 2018-06-02 15:42 | Emergency (ER) | payer OTHER ==
[2018-06-02 15:51] VITALS: BP 102/64; PULSE 101; RESP 18; TEMP 98.1
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
== END 2018-06-02 16:31 | disposition home or self-care (01) ==
LOC: EC 15:42
DX: J06.9 Acute upper respiratory infection, unspecified (principal); H66.92 Otitis media, unspecified, left ear; F17.210 Nicotine dependence, cigarettes, uncomplicated; Z91.030 Bee allergy status
CPT/HCPCS: 99283

== ENCOUNTER 2018-06-05 21:32 | Emergency (ER) | payer OTHER ==
[2018-06-05 21:49] VITALS: BP 98/68; PULSE 60; RESP 18; TEMP 97.7
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
--- NOTE | 2018-06-05 22:24 | XR ---
EXAMINATION TYPE: XR foot complete LT DATE OF EXAM: 06/05/2018 COMPARISON: NONE HISTORY: Foot pain second toe pain TECHNIQUE: 3 view FINDINGS: Metatarsals are intact. I see no fracture nor dislocation. The second toe appears intact. IMPRESSION: Normal left foot.
== END 2018-06-05 22:30 | disposition home or self-care (01) ==
LOC: EC 21:32
DX: S90.122A Contusion of left lesser toe(s) without damage to nail, initial encounter (principal); F17.200 Nicotine dependence, unspecified, uncomplicated; Z91.030 Bee allergy status; X58.XXXA Exposure to other specified factors, initial encounter; Y93.39 Activity, other involving climbing, rappelling and jumping off
CPT/HCPCS: 99283

== ENCOUNTER 2018-06-08 22:23 | Emergency (ER) | payer SELFPAY ==
[2018-06-08 22:34] VITALS: BP 97/48; PULSE 69; RESP 18; TEMP 97.8
[2018-06-08] MEDS ORDERED: PENICILLIN VK 500MG STARTER 4 TAB BTL PO STA (22:50)
[2018-06-08] MEDS ORDERED: IBUPROFEN 600 MG TAB PO STA (22:52)
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
== END 2018-06-08 23:01 | disposition home or self-care (01) ==
LOC: EC 22:23
DX: K04.7 Periapical abscess without sinus (principal); F17.200 Nicotine dependence, unspecified, uncomplicated; Z91.030 Bee allergy status
CPT/HCPCS: 99282

== ENCOUNTER 2018-06-16 12:34 | Emergency (ER) | payer OTHER ==
[2018-06-16 12:45] VITALS: BP 94/66; PULSE 80; RESP 16; TEMP 98.2
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
--- NOTE | 2018-06-16 13:33 | XR ---
EXAMINATION TYPE: XR foot complete bilateral , 6 VIEWS DATE OF EXAM ORDERED: 06/16/2018 HISTORY: Pain. COMPARISON: None. FINDINGS: No fracture, dislocation or other acute bony lesion is seen. IMPRESSION: NORMAL BILATERAL FEET.
[2018-06-16] MEDS ORDERED: IBUPROFEN 600 MG STARTER PACK 4 TAB BTL PO STA (13:46)
== END 2018-06-16 14:02 | disposition home or self-care (01) ==
LOC: EC 12:34
DX: M79.671 Pain in right foot (principal); M79.672 Pain in left foot; M79.674 Pain in right toe(s); F41.9 Anxiety disorder, unspecified; F17.200 Nicotine dependence, unspecified, uncomplicated; Z91.030 Bee allergy status; Z79.899 Other long term (current) drug therapy; W22.8XXA Striking against or struck by other objects, initial encounter; Y93.01 Activity, walking, marching and hiking
CPT/HCPCS: 99283

== ENCOUNTER 2018-07-22 08:16 | Emergency (ER) | payer OTHER ==
[2018-07-22 08:22] VITALS: BP 93/54; PULSE 50; RESP 16; TEMP 97.5
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
--- NOTE | 2018-07-22 09:03 | XR ---
EXAMINATION TYPE: XR hand complete RT DATE OF EXAM: 07/22/2018 CLINICAL HISTORY: pain TECHNIQUE: Frontal, lateral and oblique images of the right hand are obtained. COMPARISON: None. FINDINGS: There is no acute fracture/dislocation evident. The joint spaces appear within normal limi ts. The overlying soft tissue appears unremarkable. IMPRESSION: There is no acute fracture or dislocation ICD 10 NO FRACTURE, INITIAL EVALUATION
== END 2018-07-22 09:10 | disposition home or self-care (01) ==
LOC: EC 08:16
DX: S60.221A Contusion of right hand, initial encounter (principal); F20.9 Schizophrenia, unspecified; F31.9 Bipolar disorder, unspecified; F90.9 Attention-deficit hyperactivity disorder, unspecified type; F17.200 Nicotine dependence, unspecified, uncomplicated; Z79.899 Other long term (current) drug therapy; Z91.030 Bee allergy status; W22.8XXA Striking against or struck by other objects, initial encounter
CPT/HCPCS: 99283

== ENCOUNTER 2018-10-03 04:15 | Emergency (ER) | payer OTHER ==
[2018-10-03 04:24] VITALS: BP 115/57; PULSE 62; RESP 20; TEMP 98.1
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
== END 2018-10-03 04:56 | disposition home or self-care (01) ==
LOC: EC 04:15
DX: Z71.1 Person with feared health complaint in whom no diagnosis is made (principal); F41.9 Anxiety disorder, unspecified; F17.200 Nicotine dependence, unspecified, uncomplicated; Z91.030 Bee allergy status; Z79.899 Other long term (current) drug therapy
CPT/HCPCS: 99282

== ENCOUNTER 2018-10-04 15:23 | Emergency (ER) | payer OTHER ==
[2018-10-04 15:36] VITALS: BP 148/88; PULSE 87; RESP 18; TEMP 97.6
[2018-10-04] MEDS ORDERED: AZITHROMYCIN 500 MG TAB PO STA (15:50)
[2018-10-04] MEDS ORDERED: cefTRIAXone 250 MG VIAL IM STA (15:50)
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
[2018-10-05 13:42] LABS: C. trachomatis,PCR Negative (Neg,Equiv); Chlamydia trachomatis Source Urine; N. gonorrhoeae,PCR Negative (Neg,Equiv); Neisseria Source Urine
== END 2018-10-04 16:32 | disposition home or self-care (01) ==
LOC: EC 15:23
DX: Z20.2 Contact with and (suspected) exposure to infections with a predominantly sexual mode of transmission (principal); F90.9 Attention-deficit hyperactivity disorder, unspecified type; F31.9 Bipolar disorder, unspecified; F41.9 Anxiety disorder, unspecified; F20.9 Schizophrenia, unspecified; F17.200 Nicotine dependence, unspecified, uncomplicated; Z79.899 Other long term (current) drug therapy; Z91.030 Bee allergy status
CPT/HCPCS: 87491; 87591; 99283; 96372; J0696

== ENCOUNTER 2019-03-30 18:15 | Emergency (ER) | payer OTHER ==
[2019-03-30 18:18] VITALS: BP 123/81; PULSE 54; RESP 18; TEMP 97.6
[2019-03-30] MEDS ORDERED: IBUPROFEN 600 MG STARTER PACK 4 TAB BTL PO STA (18:38)
[2019-03-30] MEDS ORDERED: PENICILLIN VK 500MG STARTER 4 TAB BTL PO STA (18:38)
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
== END 2019-03-30 19:12 | disposition home or self-care (01) ==
LOC: EC 18:15
DX: K08.89 Other specified disorders of teeth and supporting structures (principal); F31.9 Bipolar disorder, unspecified; F20.9 Schizophrenia, unspecified; F90.9 Attention-deficit hyperactivity disorder, unspecified type; F41.9 Anxiety disorder, unspecified; F17.200 Nicotine dependence, unspecified, uncomplicated; Z79.899 Other long term (current) drug therapy; Z91.030 Bee allergy status
CPT/HCPCS: 99282

== ENCOUNTER 2019-06-05 08:48 | Emergency (ER) | payer OTHER ==
[2019-06-05 08:58] VITALS: BP 126/68; PULSE 85; RESP 16; TEMP 97.8
--- NOTE | 2019-06-05 09:23 | XR ---
EXAMINATION TYPE: XR foot complete RT DATE OF EXAM: 06/05/2019 CLINICAL HISTORY: pain TECHNIQUE: Frontal, lateral and oblique images of the right foot are obtained. COMPARISON: None. FINDINGS: There is no acute fracture/dislocation evident. The joint spaces appear within normal álvarez its. The overlying soft tissue appears unremarkable. IMPRESSION: There is no acute fracture or dislocation. ICD 10 NO FRACTURE, INITIAL EVALUATION
[2019-06-05] MEDS ORDERED: IBUPROFEN 600 MG STARTER PACK 4 TAB BTL PO STA (10:04)
[2019-06-05] MEDS ORDERED: CEPHALEXIN 500MG STARTER PACK 4 CAP BTL PO STA (10:04)
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
== END 2019-06-05 10:17 | disposition home or self-care (01) ==
LOC: EC 08:48
DX: S99.921A Unspecified injury of right foot, initial encounter (principal); L60.0 Ingrowing nail; S90.211A Contusion of right great toe with damage to nail, initial encounter; F17.200 Nicotine dependence, unspecified, uncomplicated; Z91.030 Bee allergy status; X58.XXXA Exposure to other specified factors, initial encounter
CPT/HCPCS: 99284

== ENCOUNTER 2019-07-11 12:40 | Emergency (ER) | payer OTHER ==
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
== END 2019-07-11 13:19 | disposition left against medical advice (07) ==
LOC: EC 12:40
DX: S01.01XA Laceration without foreign body of scalp, initial encounter (principal); S30.810A Abrasion of lower back and pelvis, initial encounter; M25.561 Pain in right knee; F17.200 Nicotine dependence, unspecified, uncomplicated; Z91.030 Bee allergy status; V03.10XA Pedestrian on foot injured in collision with car, pick-up truck or van in traffic accident, initial encounter; Y93.01 Activity, walking, marching and hiking; Y92.410 Unspecified street and highway as the place of occurrence of the external cause; Z53.20 Procedure and treatment not carried out because of patient's decision for unspecified reasons
CPT/HCPCS: 99284

== ENCOUNTER 2019-09-21 15:49 | Emergency (ER) | payer OTHER ==
[2019-09-21 15:56] VITALS: RESP 18
[2019-09-21] MEDS ORDERED: AMOXIC-POT CLAV 875-125MG 1 EACH TAB PO STA (16:47)
[2019-09-21] MEDS ORDERED: KETOROLAC 30 MG/ML 1 ML VIAL IM STA (16:47)
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
[2019-09-21 17:21] VITALS: BP 121/79; PULSE 79; TEMP 97.9
== END 2019-09-21 17:16 | disposition home or self-care (01) ==
LOC: EC 15:49
DX: K04.7 Periapical abscess without sinus (principal); K08.89 Other specified disorders of teeth and supporting structures; I10 Essential (primary) hypertension; F17.200 Nicotine dependence, unspecified, uncomplicated; Z91.030 Bee allergy status
CPT/HCPCS: 99283; 96372; J1885

== ENCOUNTER 2020-04-21 04:51 | Emergency (ER) | payer OTHER ==
[2020-04-21 04:57] VITALS: RESP 18
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
[2020-04-21 06:30] VITALS: BP 129/92; PULSE 83; TEMP 97.6
[2020-04-21] MEDS ORDERED: PENICILLIN VK 500MG STARTER 4 TAB BTL PO STA (06:49)
== END 2020-04-21 06:58 | disposition home or self-care (01) ==
LOC: EC 04:51
DX: K13.79 Other lesions of oral mucosa (principal); F17.200 Nicotine dependence, unspecified, uncomplicated; Z91.030 Bee allergy status
CPT/HCPCS: 87081; 87430; 99283

== ENCOUNTER 2020-05-21 14:00 | Emergency (ER) | payer OTHER ==
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
[2020-05-21 14:12] VITALS: BP 135/80; PULSE 80; RESP 20; TEMP 98.1
== END 2020-05-21 14:24 | disposition home or self-care (01) ==
LOC: EC 14:00
DX: F43.20 Adjustment disorder, unspecified (principal); J02.9 Acute pharyngitis, unspecified; F17.200 Nicotine dependence, unspecified, uncomplicated; Z91.030 Bee allergy status
CPT/HCPCS: 99282

== ENCOUNTER 2020-05-24 04:35 | Emergency (ER) | payer OTHER ==
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
[2020-05-24 07:02] VITALS: BP 102/60; PULSE 55; RESP 16; TEMP 98.2
[2020-05-24 07:02] LABS: Appearance,Urine Clear (Clear); Bilirubin,Urine Negative (Negative); Blood,Urine Negative (Negative); Color,Urine Yellow; Glucose,Urine (UA) Negative (Negative); Ketones,Urine Negative (Negative); Leukocyte Esterase,Urine Negative (Negative); Nitrite,Urine Negative (Negative); PH, Urine 6.5 (5.0-8.0); Protein,Urine Trace (Negative); Specific Gravity,Urine 1.026 (1.001-1.035)
--- NOTE | 2020-05-24 07:24 | US ---
EXAM: US Scrotum CLINICAL HISTORY: ITS.REASON US Reason: left testicle swelling TECHNIQUE: Real-time ultrasound of the scrotum with color Doppler and image documentation. COMPARISON: Testicular ultrasound April 20, 2017 FINDINGS: The right testicle measures 4.6 x 2.0 x 3.6 cm. The left testicle measures 4.6 x 2.2 x 3.5 cm. Small left epididymal cyst measuring 4 x 4 mm, unchanged. Normal color flow and Doppler interrogation of the bilateral testicles. No evidence of testicular torsion. No evidence of hydrocele or varicocele. IMPRESSION: Stable 4 x 4 mm left epididymal cyst. Otherwise, normal exam.
[2020-05-24] MEDS ORDERED: cefTRIAXone 250 MG VIAL IM STA (07:38)
[2020-05-24] MEDS ORDERED: AZITHROMYCIN 500 MG TAB PO STA (07:38)
[2020-05-24 15:00] LABS: C. trachomatis,PCR Negative (Neg,Equiv); Chlamydia trachomatis Source Urine; N. gonorrhoeae,PCR Negative (Neg,Equiv); Neisseria Source Urine
== END 2020-05-24 07:53 | disposition home or self-care (01) ==
LOC: EC 04:35
DX: N50.3 Cyst of epididymis (principal); F17.200 Nicotine dependence, unspecified, uncomplicated; Z91.030 Bee allergy status
CPT/HCPCS: 81003; 87491; 87591; 93975; 76870; 99284; 96372; J0696

== ENCOUNTER 2020-06-08 03:03 | Emergency (ER) | payer OTHER | END 2020-06-08 03:10 | disposition left against medical advice (07) | LOC: EC 03:03 | DX: Z53.21 Procedure and treatment not carried out due to patient leaving prior to being seen by health care provider (principal) | CPT/HCPCS: 99499 ==

== ENCOUNTER 2020-06-20 04:14 | Emergency (ER) | payer OTHER ==
[2020-06-20 04:30] VITALS: BP 121/70; PULSE 83; RESP 16; TEMP 98.4
[2020-06-20 04:55] LABS: Appearance,Urine Clear (Clear); Bilirubin,Urine Negative (Negative); Blood,Urine Negative (Negative); Color,Urine Light Yellow; Glucose,Urine (UA) Negative (Negative); Ketones,Urine Negative (Negative); Leukocyte Esterase,Urine Negative (Negative); Nitrite,Urine Negative (Negative); Protein,Urine Negative (Negative); Specific Gravity,Urine 1.007 (1.001-1.035); Urobilinogen,Urine <2.0 mg/dL (<2.0)
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
== END 2020-06-20 05:24 | disposition home or self-care (01) ==
LOC: EC 04:14
DX: S39.012A Strain of muscle, fascia and tendon of lower back, initial encounter (principal); R09.81 Nasal congestion; F17.200 Nicotine dependence, unspecified, uncomplicated; Z91.030 Bee allergy status; X58.XXXA Exposure to other specified factors, initial encounter
CPT/HCPCS: 81003; 99283

== ENCOUNTER 2020-08-06 09:12 | Inpatient (IN) | payer MEDICARE, MEDICAID ==
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
[2020-08-06] MEDS ORDERED: ZIPRASIDONE 20 MG VIAL IM STA (09:42)
[2020-08-06] MEDS ORDERED: LORazepam 2 MG/ML INJ IM STA (09:42)
[2020-08-06 10:26] LABS: Amphetamine Screen,Urine Not Detected (NotDetected); Barbiturate Screen,Urine Not Detected (NotDetected); Benzodiazepines Screen,Urine Not Detected (NotDetected); Cocaine Screen,Urine Not Detected (NotDetected); Methadone Screen, Urine Not Detected (NotDetected); Opiate Screen,Urine Not Detected (NotDetected); Oxycodone Screen, Urine Not Detected (NotDetected); Phencyclidine Screen,Urine Not Detected (NotDetected); Tricyclic Antidepressant,Urine Not Detected (NotDetected); Urn Cannabinoid Scrn Detected (NotDetected)
[2020-08-06] MEDS ORDERED: MAG HYDROX/AL HYDROX/SIMETH 30 ML CUP PO PRN (14:49)
[2020-08-06] MEDS ORDERED: ACETAMINOPHEN TAB 325 MG TAB PO PRN (14:49)
[2020-08-06] MEDS ORDERED: MAGNESIUM HYDROXIDE 2,400 MG/10 ML CUP PO PRN (14:49)
[2020-08-06 15:29] VITALS: BP 123/76; PULSE 78; RESP 16
[2020-08-06] MEDS: HALOPERIDOL LACTATE 5 MG/ML 1 ML VIAL IM PRN (16:30)
[2020-08-06] MEDS: LORazepam 2 MG/ML INJ IM PRN (16:32)
[2020-08-07] MEDS: LORazepam 1 MG TAB PO PRN (06:33)
[2020-08-07] MEDS: HALOPERIDOL LACTATE 5 MG/ML 1 ML VIAL IM PRN (09:23)
[2020-08-07] MEDS ORDERED: traZODone HCL 50 MG TAB PO PRN (12:07)
[2020-08-07] MEDS ORDERED: NICOTINE POLACRILEX 2 MG GUM BUCCAL PRN (12:16)
--- NOTE | 2020-08-07 12:17 | P.HP ---
Psychiatric H&P - . H&P Date: 08/07/20 History & Physical: Allergies Allergy/AdvReac Type Severity Reaction Status Date / Time venom-honey bee Allergy Swelling Verified 06/20/20 04:30 bee venom (honey bee) Vital Signs Temp 97.8 F 08/06/20 15:28 Pulse 78 08/06/20 15:28 Resp 16 08/06/20 15:28 BP 123/76 08/06/20 15:28 Pulse Ox 98 08/06/20 15:28 Intake & Output 08/06/20 08/07/20 08/07/20 18:59 06:59 18:59 Weight 68.039 kg Laboratory Last Values Urine Opiates Screen Not Detected (NotDetected) 08/06/20 09:51 Ur Oxycodone Screen Not Detected (NotDetected) 08/06/20 09:51 Urine Methadone Screen Not Detected (NotDetected) 08/06/20 09:51 Ur Propoxyphene Screen Not Detected (NotDetected) 08/06/20 09:51 Ur Barbiturates Screen Not Detected (NotDetected) 08/06/20 09:51 U Tricyclic Antidepress Not Detected (NotDetected) 08/06/20 09:51 Ur Phencyclidine Scrn Not Detected (NotDetected) 08/06/20 09:51 Ur Amphetamines Screen Not Detected (NotDetected) 08/06/20 09:51 U Methamphetamines Scrn Not Detected (NotDetected) 08/06/20 09:51 U Benzodiazepines Scrn Not Detected (NotDetected) 08/06/20 09:51 Urine Cocaine Screen Not Detected (NotDetected) 08/06/20 09:51 U Marijuana (THC) Screen Detected (NotDetected) H 08/06/20 09:51 Coronavirus (PCR) Not Detected (Not Detectd) 08/06/20 09:59 08/07/20 12:10 IDENTIFYING DATA: Patient is a 25-year-old male who is currently homeless but also lives with the mother of his child, has 1 kid, is unemployed. HPI: Patient presented to the hospital yesterday and according to ER report had been stating that he has been being chased by people that want to kill him and his family. Patient has had several different admissions in the past for psychiatric concerns. Patient was agreeable to speak to curriculum writer after being seen in his room and appeared to have disheveled appearance and poor hygiene and grooming. Patient had poor insight and judgment and was fixated on being discharged from the hospital. He states that he wants to check on his family because he is concerned that people were out to kill all of them. He states that he was feeling scared yesterday and called the police and the police brought him into the hospital. He states that people were chasing him to [facility]. He states that he is not suicidal repeatedly to curriculum writer. He claims that he wants to eventually move to [place]. He had poor impulse control and was labile and cried as he could not remember his mother's number. He states that his sleep was fair last night. He claims that he is not taking any medications except for Xanax. Patient denies any suicidal or homicidal ideations intent or plan. At this time patient denies any auditory or visual hallucinations. Continues to endorse paranoia. Patient admits to using on a daily and also cigarettes. He denies any other recreational drug use. Recent UDS was positive for marijuana only. PAST PSYCHIATRIC HISTORY: Patient states that he has a history of schizophrenia. Patient was previously on Risperdal however now claims that he only takes Xanax. He has been admitted several times to the inpatient psychiatric unit and his last admission was 12/2017. Patient denies any psychiatric outpatient follow-up. Patient denies any history of suicide attempts in the past. PMH:denies ALLERGIES: as per EMR CHEMICAL DEPENDENCY HISTORY: as per HPI FAMILY PSYCHIATRIC/SUBSTANCE USE HISTORY: He states that "all of them" have some form of psychiatric illness. SOCIAL HISTORY: Patient was born and raised in here in [place] and claims that he did not complete high school. He denies being any any legal trouble in the past. He claims that he is currently homeless however at times lives with his child's mother. He claims that he is unemployed. MENTAL STATUS EXAM: General Appearance: Patient appears to be thin, stated age is alert, appears to be confused at times and have poor frustration tolerance. Patient appears to have poor hygiene and grooming. Overall tattoos over his body. Behavior: Patient is seated without any agitated behavior. Bizarre and paranoid Speech: Patient's speech is fluent and nonpressured. Mood/Affect: Patient reports their mood is "scared", affect is congruent and tearful at times Suicidality/Homicidality: Patient denies having any homicidal ideation intent or plan. Denies any suicidal ideations intent or plan Perceptions: Patient denies any visual hallucinations and denies any auditory hallucinations Though content/process: Patient is fixated on being discharged. Poor insight and judgment. Significant paranoia. Memory and concentration: AOX3, grossly intact for the purposes of this session. Can spell "WORLD" backwards Judgment and insight: poor STRENGTHS/WEAKNESSES: strength is that patient is resilient. Weakness is that patient has poor judgment and is impulsive INTELLECT: average IMPRESSIONS: Psychosis unspecified, rule out secondary to substance abuse versus schizophrenia Cannabis use disorder Nicotine dependence PLAN: -Patient is admitted under involuntary status to [facility] for stabilization of psychiatric symptoms and safety. Patient has not signed adult voluntary form and medication consent and is placed in patient's chart. A second certification was completed and along with petition will be filed for court. -Medications : Will start patient on paliperidone by mouth 3 mg daily for mood stabilization/psychosis. Added trazodone 50 mg daily at bedtime when necessary for insomnia/mood. -Ativan and Haldol PRN for agitation/aggression -Patient was informed of the risks, benefits and side effects of the medication and patient verbally consented to taking the medications -Internal Medicine consult to perform medical evaluation and physical. -NRT - nicotine gum -SW on board for discharge planning. Encourage patient to participate in groups to work on coping skills. 08/07/20 12:13 08/07/20 12:17
[2020-08-07] MEDS: PALIPERIDONE 3 MG TAB.ER.24 PO SCH (12:37)
--- NOTE | 2020-08-07 17:28 | CONS ---
CONSULTATION CHIEF COMPLAINT: Schizophrenia and acute psychosis. HISTORY OF PRESENT ILLNESS: This is another admission for this 25-year-old white male with mental health issues most of his life. He also has significant drug problem. He was in the office recently asking for tranquilizers. He has been noncompliant and failed drug screens in the past and his request was refused. He was directed to communicate with [facility]. Apparently after that, he was admitted with acute psychosis. Review of systems is not reliably obtained. He has no medical complaints. He is confabulating that people were after him and trying to kill him. PAST MEDICAL HISTORY: ALLERGIES: He is allergic to [place]. He has been on Xanax and Seroquel in the past. SOCIAL HISTORY: He does smoke and use marijuana, but does not drink. PHYSICAL EXAMINATION: Blood pressure 118/68, pulse 64, respirations 16. He is afebrile. In general, he appeared to be marginally nourished. He had multiple tattoos. Head, ears, eyes, nose and mouth were normal. Chest is clear. Cardiac exam demonstrates sinus rhythm. Abdomen is flat and soft, nontender without masses. Extremities are normal. Neurologically he is intact, but he was slightly lethargic and somewhat confused. IMPRESSION: He was admitted to the hospital with diagnoses: 1. Acute psychosis with paranoid features. 2. Schizophrenia. 3. Longstanding history of substance abuse. RECOMMENDATIONS: None. MMODL / IJN: [id number] /
[2020-08-08] MEDS: PALIPERIDONE 3 MG TAB.ER.24 PO SCH (08:36)
[2020-08-08] MEDS: LORazepam 2 MG/ML INJ IM PRN (08:40)
[2020-08-08] MEDS: HALOPERIDOL LACTATE 5 MG/ML 1 ML VIAL IM PRN (08:40)
--- NOTE | 2020-08-08 10:37 | P.PN ---
Progress Note - Text Progress Note Date: 08/08/20 Interval history: Patient was seen lying down in his bed this morning with his sheets covering his whole body in his head and was difficult to engage with in conversation. Patient did not want to leave his bed this morning to speak with senior underwriter. He appeared to be fairly drowsy. Patient received a prn of Haldol and Ativan this morning. Patient denied any overnight complaints. She denied any problems with his mood and states he is feeling "okay". He was fairly superficial and guarded with senior underwriter. At this time patient denies any suicidal or homicidal ideations intent or plan. Denies any Auditory or visual hallucinations. Mental status exam: General Appearance: Patient appears to be covered in his blankets, stated age is alert, difficult to redirect and uncooperative today. Behavior: No agitated behavior. Patient is calm and difficult to direct Speech: Patient's speech is fluent and nonpressured. [place] Mood/Affect: Mood is "ok", affect is congruent and constricted. Suicidality/Homicidality: Patient denies having any suicidal or homicidal ideation intent or plan. Perceptions: Patient denies any auditory or visual hallucinations. Though content/process: [place], poverty of content and speech. Not endorsing paranoia today. Memory and concentration: AOX3, grossly intact for the purposes of this session Judgment and insight: Poor Assessment/Plan: Continue with current diagnosis. Patient continues to meet criteria for inpatient psychiatric admission for symptom stabilization and safety.Patient will be maintained on current psychotropic medication regimen, with the exception of increasing patient's paliperidone to 6 mg daily starting tomorrow. Monitor for medication compliance and for any psychotropic medication side effects. Will continue to monitor ongoing response to treatment. Encouraged participation in milieu.
[2020-08-09] MEDS: PALIPERIDONE 6 MG TAB.ER.24 PO SCH (07:50)
[2020-08-09] MEDS: LORazepam 1 MG TAB PO PRN (07:50)
--- NOTE | 2020-08-09 14:09 | P.PN ---
Progress Note - Text Progress Note Date: 08/09/20 Clinical Problems: Unspecified psychotic disorder, rule out substance-induced psychotic disorder, rule out schizoaffective or schizophrenic disorder, cannabis use disorder, benzodiazepine use disorder, rule out opiate use disorder, mild intellectual disability, antisocial personal disorder Interim history: I reviewed the medical record, interviewed the patient and discussed his treatment and treatment plan during team meeting. He approached me several times today. Whenever I passed him in the hallway he requested my attention and he came to the office several times requesting to speak with me. He was preoccupied with discharge and repeatedly asked when I am discharging him. When I explained that he came to the hospital involuntarily and he would need to meet with his disability attorney he pestered me to find out when the disability attorney will speak with him. We reviewed his history and the reason for his hospitalization. He acknowledged that he was "paranoid" and believed where there is "some guys" were following him. However he currently denied that he feels paranoid or believes that someone is following him. This experience appears to have abrupt and began abruptly one day prior to his admission. I reviewed his controlled substance prescription record on an EPS. Dr. Gomez prescribe him 13 tablets of Xanax 1 mg on 08/04/2020. Collins also bragged about his marijuana use alleging that he smokes "6 blunts" every day. He denied that he has a mental illness that requires treatment with psychotropic medication. However, he is compliant with the current dose of Invega. Mental status exam: He presented as a tall thin male with multiple tattoos including face tattoos. He made eye contact and appeared to attend to interview. He had an anxious facial expression. He was alert and oriented to person, place and time. He was restless but not agitated, impulsive. His speech was spontaneous with increased rate but normal rhythm and volume. His affect was dysphoric and slightly irritable. He denied suicidal ideation, wishes or homicidal ideation. He denied feeling hopeless, helpless or worthless. He ruminated about this hospitalization and discharge. He did not express ideas reference, paranoid ideation or delusions. His thinking is very concrete but his associations were goal-directed. Assessment: He is 25-year-old who is had multiple admissions to the psychiatric unit. He was discharge several diagnoses including schizoaffective disorder bipolar type, cannabis use, borderline intellectual functioning and antisocial personality disorder. He does not follow through with recommended outpatient treatment and seeks controlled substances from his primary physician. He presented to unit with appears to be acute onset of paranoia and paranoid delusional beliefs. The paranoia and paranoid delusion was maybe result of use of benzodiazepines and marijuana on occasion exclude a primary psychotic disorder. His overall clinical presentation has improved from admission. Plan: Continue inpatient hospitalization. Deferral hearing pending. Continue Invega 6 mg daily. brick kiln worker to coordinate discharge and aftercare with his guardian. Encourage participation in therapeutic groups and activities. Evaluate clinical status response to treatment daily basis.
[2020-08-09 17:39] VITALS: TEMP 98.6
[2020-08-10] MEDS: PALIPERIDONE 6 MG TAB.ER.24 PO SCH (09:15)
[2020-08-10 11:52] VITALS: BMI 17.6
--- NOTE | 2020-08-10 11:59 | P.PN ---
Progress Note - Text Progress Note Date: 08/10/20 Clinical Problems: Substance-induced psychotic disorder, amphetamine use disorder, cannabis use disorder, benzodiazepine use disorder, rule out opiate use disorder, mild intellectual disability, antisocial personal disorder Interim history: I reviewed the medical record, interviewed the patient and discussed his treatment and treatment plan during team meeting. He again approached me several times today. Whenever I passed him in the hallway he requested my attention and he came to the office several times requesting to speak with me. He also remains preoccupied with discharge but now is interested in participating in a residential substance abuse treatment program. The social service liaison spoke with his grandmother who is concerned about his drug use and wants him into a substance abuse treatment program. Today, he admitted to using drugs and believes that his use of drugs has caused him problems. He talked about decreasing "Ice, Xanax and marijuana." He alleged that he does not "feel normal" unless he takes all 3 of these drugs. He also described conflict with family as well as increasing paranoia with the methamphetamine use. He denied that he feels that there are "sometimes," following him and watching him. He admitted that he becomes paranoid whenever he uses methamphetamine. She called the Access line and was accepted to [facility] on 08/11/2020 at 2 PM. He met with his senior attorney and deferred the probate hearing. Mental status exam: He presented as a tall thin male with multiple tattoos including face tattoos. He made eye contact and appeared to attend to interview. He had an anxious facial expression. He was alert and oriented to person, place and time. He was restless but not agitated, impulsive. His speech was spontaneous with normal rate, rhythm and volume. His affect was dysphoric. He denied suicidal ideation, wishes or homicidal ideation. He denied feeling hopeless, helpless or worthless. He ruminated about discharge to the residential substance abuse treatment program. He did not express ideas reference, paranoid ideation or delusions. His thinking is very concrete but his associations were goal-directed. Assessment: The acute psychosis has resolved and is likely a result of his abusive methamphetamine. He is superficially acknowledging that he has a substance abuse problem and is willing to enter a substance abuse treatment program. Plan: Continue inpatient hospitalization. Continue Invega 6 mg daily. Discharge on 09/10/2020 to be admitted to [facility] for residential substance abuse treatment. Encourage participation in therapeutic groups and activities. Evaluate clinical status response to treatment daily basis.
[2020-08-10] MEDS: LORazepam 1 MG TAB PO PRN (16:54)
[2020-08-11] MEDS: PALIPERIDONE 6 MG TAB.ER.24 PO SCH (08:20)
[2020-08-11] MEDS ORDERED: LORazepam 0.5 MG TAB PO PRN (08:34)
--- NOTE | 2020-08-11 12:07 | P.DS ---
Providers Date of admission: 08/06/20 14:47 Attending physician: Federico Ruiz MD Consults: 08/06/20 14:49 Consult Physician Routine Consulting Provider: Andrae Gomez Consult Reason/Comments: medical management Do you want consulting provider notified?: Yes Primary care physician: Andrae Gomez - Discharge Diagnosis(es) (1) Methamphetamine-induced psychotic disorder Current Visit: Yes Status: Resolved Priority: Medium (2) Methamphetamine use disorder, severe Current Visit: Yes Status: Chronic Priority: High (3) Cannabis use disorder, severe, dependence Current Visit: Yes Status: Chronic Priority: High (4) Sedative, hypnotic or anxiolytic use disorder, severe, dependence Current Visit: Yes Status: Chronic Priority: High (5) Mild intellectual disability Current Visit: Yes Status: Chronic Priority: Low (6) Antisocial personality disorder Current Visit: Yes Status: Chronic Priority: Medium Hospital Course: HISTORY: He is a 25-year-old single male admitted involuntarily to the psychiatric unit. He presented to the ED stating that he is being chased by people that want to kill him and his family. [facility] unit he requested discharge. He complained that he needs to check on his family is concerned that people were out to kill him. These people chased him to [facility]. He initially denied use of substances with the exception of marijuana but at the behest of his family acknowledge that he uses methamphetamine and benzodiazepines as well as marijuana. His UDS on admission was positive only for marijuana. HOSPITAL COURSE: We admitted the psychiatric unit under care of this telegraphic typewriter repairer. We provided a comprehensive biopsychosocial assessment. The senior energy consultant director of individual giving completed initial physical symptoms medical history and did not diagnose a major medical problem. We treated the paranoia and delusional belief that they got 6 mg daily. The paranoia and delusional thoughts rapidly abated. During hospitalization the workers compensation legal secretary spoke with family who revealed his problems with methamphetamine and benzodiazepines. The family strongly encouraged him to obtain substance abuse treatment. He called the Access line and arrange for admission to the [facility]. He approach treatment staff multiple times every day during this brief hospitalization with multiple concerns even though we have explained and answered him on prior occasions. He posed no management problem and had no episodes of behavioral dyscontrol. MENTAL STATUS ON DISCHARGE: He presented as a tall thin male with multiple tattoos including face tattoos. He made eye contact and appeared to attend to interview. He had an anxious facial expression. He was alert and oriented to person, place and time. He was restless but not agitated, impulsive. His speech was spontaneous with normal rate, rhythm and volume. His affect was blunted but stable and appropriate. He denied suicidal ideation, wishes or homicidal ideation. He denied feeling hopeless, helpless or worthless. He ruminated about discharge to the residential substance abuse treatment program. He did not express ideas reference, paranoid ideation or delusions. His thinking is very concrete but his associations were goal- directed. DISPOSITION: Continue Invega 6 mg at daily and trazodone 50 mg at bedtime. He is scheduled for admission to [facility] on 08/11/2020 at 2 PM. The workers compensation legal secretary arranged for his father's pick him up and drive him to the residential recovery program. Patient Condition at Discharge: Stable Plan - Discharge Summary New Discharge Prescriptions: New traZODone HCL [Desyrel] 50 mg PO HS PRN #30 tab PRN Reason: Insomnia Paliperidone [Invega] 3 mg PO DAILY #30 tab.er.24 Nicotine Polacrilex [Nicorette] 2 mg BUCCAL Q4HR PRN gum PRN Reason: Nicotine Cravings Discontinued ALPRAZolam [Xanax] 1 mg PO TID PRN PRN Reason: Anxiety Discharge Medication List Nicotine Polacrilex [Nicorette] 2 mg BUCCAL Q4HR PRN gum 08/11/20 [Rx] Paliperidone [Invega] 3 mg PO DAILY #30 tab.er.24 08/11/20 [Rx] traZODone HCL [Desyrel] 50 mg PO HS PRN #30 tab 08/11/20 [Rx] Follow up Appointment(s)/Referral(s): Rehab, [facility] [Other] - 08/11/20 2:00 pm Andrae Gomez MD [Primary Care Provider] - 1-2 days Patient Instructions/Handouts: How to Stop Smoking (DC), Benzodiazepine Abuse (DC), Brief Psychotic Disorder (DC), Cannabis Abuse (DC), Methamphetamine Abuse (DC) Activity/Diet/Wound Care/Special Instructions: Activity and diet as tolerated. Avoid the use of street drugs and alcohol. Take all medications as prescribed. When you are in need of refills on your medications please contact your medical provider and/or outpatient psychiatrist to have this done. Please go to scheduled outpatient appointment for aftercare treatment. If symptoms return or become worse, call the crisis line at and/or go to the nearest emergency room for evaluation. Discharge Disposition: HOME SELF-CARE
[2020-08-12] MEDS ORDERED: PALIPERIDONE 3 MG TAB.ER.24 PO SCH (09:00)
== END 2020-08-11 11:50 | disposition home or self-care (01) | DRG 897 ==
LOC: EC 09:12 → 3MHU 14:47
PROVIDERS: ADMIT Psychiatry & Neurology Psychiatry; ATTEND Psychiatry & Neurology Psychiatry
DX: F15.250 Other stimulant dependence with stimulant-induced psychotic disorder with delusions (principal); F13.20 Sedative, hypnotic or anxiolytic dependence, uncomplicated; Z20.828 Contact with and (suspected) exposure to other viral communicable diseases; F25.0 Schizoaffective disorder, bipolar type; F60.2 Antisocial personality disorder; F12.20 Cannabis dependence, uncomplicated; Z91.030 Bee allergy status; I10 Essential (primary) hypertension; K40.20 Bilateral inguinal hernia, without obstruction or gangrene, not specified as recurrent; F90.9 Attention-deficit hyperactivity disorder, unspecified type; F41.9 Anxiety disorder, unspecified; F32.9 Major depressive disorder, single episode, unspecified; F17.200 Nicotine dependence, unspecified, uncomplicated; G47.00 Insomnia, unspecified; F70 Mild intellectual disabilities; R45.6 Violent behavior; Z71.6 Tobacco abuse counseling; Z71.3 Dietary counseling and surveillance; Z87.820 Personal history of traumatic brain injury; Z59.0 Homelessness; Z56.0 Unemployment, unspecified; Z91.19 Patient's noncompliance with other medical treatment and regimen; Z82.49 Family history of ischemic heart disease and other diseases of the circulatory system
CPT/HCPCS: 80306; 82075; 87635; 96372; 99285

== ENCOUNTER 2020-08-15 12:48 | Emergency (ER) | payer MEDICARE, OTHER ==
[2020-08-15 13:04] VITALS: BP 131/84; PULSE 103; RESP 18; TEMP 98.7
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
== END 2020-08-15 13:33 | disposition home or self-care (01) ==
LOC: EC 12:48
DX: Z76.0 Encounter for issue of repeat prescription (principal); I10 Essential (primary) hypertension; F17.200 Nicotine dependence, unspecified, uncomplicated; Z91.030 Bee allergy status
CPT/HCPCS: 99282

== ENCOUNTER 2020-08-15 14:39 | Emergency (ER) | payer MEDICARE, OTHER ==
[2020-08-15 14:50] VITALS: BP 149/73; PULSE 130; RESP 20; TEMP 98
[2020-08-15] MEDS ORDERED: LORazepam 2 MG/ML INJ IM STA (14:53)
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
[2020-08-15] MEDS ORDERED: HALOPERIDOL LACTATE 5 MG/ML 1 ML VIAL IM PRN (15:55)
[2020-08-15] MEDS ORDERED: OLANZapine 10 MG VIAL IM STA (16:16)
[2020-08-15 16:39] LABS: Amphetamine Screen,Urine Detected (NotDetected); Barbiturate Screen,Urine Not Detected (NotDetected); Benzodiazepines Screen,Urine Not Detected (NotDetected); Cocaine Screen,Urine Not Detected (NotDetected); Methadone Screen, Urine Not Detected (NotDetected); Opiate Screen,Urine Not Detected (NotDetected); Oxycodone Screen, Urine Not Detected (NotDetected); Phencyclidine Screen,Urine Not Detected (NotDetected); Tricyclic Antidepressant,Urine Not Detected (NotDetected); Urn Cannabinoid Scrn Detected (NotDetected)
[2020-08-15 16:42] LABS: Amorphous Sediment,Urine Occasional /hpf; Appearance,Urine Turbid (Clear); Bacteria,Urine Few /hpf; Bilirubin,Urine Negative (Negative); Blood,Urine Negative (Negative); Color,Urine Yellow; Glucose,Urine (UA) Negative (Negative); Hyaline Casts,Urine 20 /lpf (0-2); Ketones,Urine Trace (Negative); Leukocyte Esterase,Urine Negative (Negative); Mucus,Urine Many /hpf; Nitrite,Urine Negative (Negative); PH, Urine 6.5 (5.0-8.0); Protein,Urine 2+ (Negative); RBC,Urine 5 /hpf (0-5); Specific Gravity,Urine 1.023 (1.001-1.035); Sperm,Urine Many /hpf; Squamous Epithelial Cell,Urine 2 /hpf (0-4); Urobilinogen,Urine <2.0 mg/dL (<2.0); WBC,Urine 2 /hpf (0-5)
[2020-08-15 16:48] LABS: Basophils # (A) 0.1 k/uL (0-0.2); Basophils % (A) 0 %; Eosinophils # (A) 0.3 k/uL (0-0.7); Eosinophils % (A) 2 %; HCT 48.7 % (39.0-53.0); HGB 16.8 gm/dL (13.0-17.5); Lymphocytes # (A) 1.5 k/uL (1.0-4.8); Lymphocytes % (A) 7 %; MCH 32.2 pg (25.0-35.0); MCHC 34.6 g/dL (31.0-37.0); MCV 93.1 fL (80.0-100.0); Mean Platelet Volume 7.5; Monocytes # (A) 1.1 k/uL (0-1.0); Monocytes % (A) 5 %; Neutrophils # (A) 17.8 k/uL (1.3-7.7); Neutrophils % (A) 85 %; Platelet Count 353 k/uL (150-450); RBC 5.22 m/uL (4.30-5.90); RDW 12.1 % (11.5-15.5)
[2020-08-15 17:45] LABS: ALT 30 U/L (4-49); AST 45 U/L (17-59); African American GFR (CKD) >90 (>60 ml/min/1.73 sqM); Albumin 5.4 g/dL (3.5-5.0); Alkaline Phosphatase 100 U/L (38-126); Anion Gap 12 mmol/L; Blood Urea Nitrogen 15 mg/dL (9-20); Calcium 10.6 mg/dL (8.4-10.2); Carbon Dioxide 22 mmol/L (22-30); Chloride 104 mmol/L (98-107); Glucose 92 mg/dL (74-99); Non-African American GFR(CKD) >90 (>60 ml/min/1.73 sqM); Potassium 4.7 mmol/L (3.5-5.1); Sodium 138 mmol/L (137-145); Total Bilirubin 0.7 mg/dL (0.2-1.3); Total Protein 8.9 g/dL (6.3-8.2)
== END 2020-08-15 21:25 | disposition home or self-care (01) ==
LOC: EC 14:39
DX: F23 Brief psychotic disorder (principal); F17.200 Nicotine dependence, unspecified, uncomplicated; Z91.030 Bee allergy status; F19.11 Other psychoactive substance abuse, in remission
CPT/HCPCS: 99285 ×2; 96372 ×4; 82075; 99282; 36415; 80053; 85025; 81001; 80306; 87635; J2060; J1630

== ENCOUNTER 2020-08-25 09:31 | Emergency (ER) | payer MEDICARE, OTHER ==
[2020-08-25 09:41] VITALS: RESP 18; TEMP 98.7
[2020-08-25] MEDS ORDERED: ZIPRASIDONE 20 MG VIAL IM STA (10:04)
[2020-08-25] MEDS ORDERED: LORazepam 2 MG/ML INJ IM STA (10:04)
[2020-08-25] MEDS ORDERED: LORazepam 1 MG TAB PO STA ×3 (10:07→19:22)
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
[2020-08-25] MEDS ORDERED: ZIPRASIDONE 20 MG CAP PO STA (12:25)
[2020-08-25 13:05] LABS: Amphetamine Screen,Urine Detected (NotDetected); Barbiturate Screen,Urine Not Detected (NotDetected); Benzodiazepines Screen,Urine Not Detected (NotDetected); Cocaine Screen,Urine Not Detected (NotDetected); Methadone Screen, Urine Not Detected (NotDetected); Opiate Screen,Urine Not Detected (NotDetected); Oxycodone Screen, Urine Not Detected (NotDetected); Phencyclidine Screen,Urine Not Detected (NotDetected); Tricyclic Antidepressant,Urine Not Detected (NotDetected); Urn Cannabinoid Scrn Detected (NotDetected)
[2020-08-25 15:55] LABS: HCT 42.7 % (39.0-53.0); MCH 32.2 pg (25.0-35.0); MCHC 35.2 g/dL (31.0-37.0); MCV 91.4 fL (80.0-100.0); Mean Platelet Volume 6.9; Platelet Count 353 k/uL (150-450); RBC 4.67 m/uL (4.30-5.90); WBC 15.4 k/uL (3.8-10.6)
[2020-08-25 16:16] LABS: ALT 56 U/L (4-49); AST 65 U/L (17-59); African American GFR (CKD) >90 (>60 ml/min/1.73 sqM); Albumin 4.9 g/dL (3.5-5.0); Alkaline Phosphatase 72 U/L (38-126); Anion Gap 6 mmol/L; Blood Urea Nitrogen 12 mg/dL (9-20); Calcium 9.9 mg/dL (8.4-10.2); Carbon Dioxide 29 mmol/L (22-30); Chloride 101 mmol/L (98-107); Glucose 97 mg/dL (74-99); Non-African American GFR(CKD) >90 (>60 ml/min/1.73 sqM); Potassium 4.4 mmol/L (3.5-5.1); Sodium 136 mmol/L (137-145); Total Bilirubin 0.8 mg/dL (0.2-1.3)
[2020-08-25 20:45] VITALS: BP 150/88; PULSE 98
[2020-08-25 23:02] LABS: Appearance,Urine Clear (Clear); Bilirubin,Urine Negative (Negative); Blood,Urine Negative (Negative); Color,Urine Yellow; Glucose,Urine (UA) Negative (Negative); Ketones,Urine Trace (Negative); Leukocyte Esterase,Urine Negative (Negative); Nitrite,Urine Negative (Negative); PH, Urine 6.5 (5.0-8.0); Protein,Urine Negative (Negative); Specific Gravity,Urine 1.012 (1.001-1.035); Urobilinogen,Urine <2.0 mg/dL (<2.0)
== END 2020-08-25 20:52 ==
LOC: EC 09:31
DX: Z03.818 Encounter for observation for suspected exposure to other biological agents ruled out (principal); F22 Delusional disorders; F41.9 Anxiety disorder, unspecified; F32.9 Major depressive disorder, single episode, unspecified; F20.9 Schizophrenia, unspecified; F15.10 Other stimulant abuse, uncomplicated; F17.200 Nicotine dependence, unspecified, uncomplicated; Z91.030 Bee allergy status
CPT/HCPCS: 36415; 80053; 80306; 81003; 82075; 85027; 87635; 99285

== ENCOUNTER 2020-09-03 16:49 | Emergency (ER) | payer MEDICARE, OTHER ==
[2020-09-03 17:00] VITALS: RESP 18
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
[2020-09-03] MEDS ORDERED: LORazepam 1 MG TAB PO ONE (18:40)
[2020-09-03 19:08] LABS: Appearance,Urine Clear (Clear); Bilirubin,Urine Negative (Negative); Blood,Urine Negative (Negative); Color,Urine Light Yellow; Glucose,Urine (UA) Negative (Negative); Ketones,Urine Negative (Negative); Leukocyte Esterase,Urine Negative (Negative); Nitrite,Urine Negative (Negative); PH, Urine 6.5 (5.0-8.0); Protein,Urine Negative (Negative); Specific Gravity,Urine 1.008 (1.001-1.035); Urobilinogen,Urine <2.0 mg/dL (<2.0)
[2020-09-03 19:22] LABS: Amphetamine Screen,Urine Detected (NotDetected); Barbiturate Screen,Urine Not Detected (NotDetected); Benzodiazepines Screen,Urine Detected (NotDetected); Cocaine Screen,Urine Detected (NotDetected); Methadone Screen, Urine Not Detected (NotDetected); Opiate Screen,Urine Not Detected (NotDetected); Oxycodone Screen, Urine Not Detected (NotDetected); Phencyclidine Screen,Urine Not Detected (NotDetected); Tricyclic Antidepressant,Urine Not Detected (NotDetected); Urn Cannabinoid Scrn Detected (NotDetected)
[2020-09-03 20:17] LABS: HCT 49.2 % (39.0-53.0); HGB 16.4 gm/dL (13.0-17.5); MCH 30.7 pg (25.0-35.0); MCHC 33.3 g/dL (31.0-37.0); MCV 92.2 fL (80.0-100.0); Mean Platelet Volume 7.3; Platelet Count 341 k/uL (150-450); RBC 5.34 m/uL (4.30-5.90); RDW 12.4 % (11.5-15.5); WBC 10.7 k/uL (3.8-10.6)
[2020-09-03 20:28] LABS: ALT 35 U/L (4-49); AST 58 U/L (17-59); African American GFR (CKD) >90 (>60 ml/min/1.73 sqM); Albumin 5.1 g/dL (3.5-5.0); Alkaline Phosphatase 87 U/L (38-126); Anion Gap 8 mmol/L; Blood Urea Nitrogen 12 mg/dL (9-20); Calcium 10.2 mg/dL (8.4-10.2); Carbon Dioxide 27 mmol/L (22-30); Chloride 102 mmol/L (98-107); Glucose 114 mg/dL (74-99); Non-African American GFR(CKD) >90 (>60 ml/min/1.73 sqM); Potassium 4.5 mmol/L (3.5-5.1); Sodium 137 mmol/L (137-145); Total Bilirubin 0.6 mg/dL (0.2-1.3); Total Protein 8.5 g/dL (6.3-8.2)
[2020-09-04 06:21] VITALS: BP 131/96; PULSE 108; TEMP 98.3
== END 2020-09-04 10:00 ==
LOC: EC 16:49 → EEVIPCON 16:49 → EC 19:40
DX: Z03.818 Encounter for observation for suspected exposure to other biological agents ruled out (principal); F22 Delusional disorders; F31.9 Bipolar disorder, unspecified; F20.9 Schizophrenia, unspecified; F17.200 Nicotine dependence, unspecified, uncomplicated; Z91.030 Bee allergy status
CPT/HCPCS: 36415; 80053; 80306; 81003; 82075; 85027; 87635; 99285

== ENCOUNTER 2020-11-15 14:19 | Emergency (ER) | payer MEDICARE, OTHER ==
[2020-11-15 14:31] VITALS: BP 129/83; PULSE 95; RESP 18; TEMP 98.3
[2020-11-15] MEDS ORDERED: PENICILLIN VK 500MG STARTER 4 TAB BTL PO STA (15:20)
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
== END 2020-11-15 15:41 | disposition home or self-care (01) ==
LOC: EC 14:19
DX: K08.89 Other specified disorders of teeth and supporting structures (principal); I10 Essential (primary) hypertension; F17.200 Nicotine dependence, unspecified, uncomplicated; F32.9 Major depressive disorder, single episode, unspecified; F20.9 Schizophrenia, unspecified; F12.90 Cannabis use, unspecified, uncomplicated

== ENCOUNTER 2020-11-24 02:11 | Inpatient (IN) | payer MEDICARE, MEDICAID ==
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
[2020-11-24] MEDS ORDERED: HALOPERIDOL LACTATE 5 MG/ML 1 ML VIAL IM STA (04:25)
[2020-11-24] MEDS ORDERED: LORazepam 2 MG/ML INJ IM STA (04:25)
[2020-11-24] MEDS ORDERED: MAGNESIUM HYDROXIDE 2,400 MG/10 ML CUP PO PRN (07:15)
[2020-11-24] MEDS ORDERED: ACETAMINOPHEN TAB 325 MG TAB PO PRN (07:15)
[2020-11-24] MEDS ORDERED: MAG HYDROX/AL HYDROX/SIMETH 30 ML CUP PO PRN (07:15)
[2020-11-24] MEDS ORDERED: HALOPERIDOL LACTATE 5 MG/ML 1 ML VIAL IM PRN (07:19)
[2020-11-24] MEDS ORDERED: LORazepam 2 MG/ML INJ IM PRN (07:19)
[2020-11-24 08:31] VITALS: RESP 20
[2020-11-24] MEDS: NICOTINE 14MG/24HR PATCH TRANSDERM SCH (12:05)
--- NOTE | 2020-11-24 13:08 | P.HP ---
Psychiatric H&P - . H&P Date: 11/24/20 History & Physical: Allergies Allergy/AdvReac Type Severity Reaction Status Date / Time venom-honey bee Allergy Swelling Verified 11/24/20 06:38 bee venom (honey bee) Vital Signs Temp 98.1 F 11/24/20 08:00 Pulse 51 L 11/24/20 08:00 Resp 20 11/24/20 08:00 BP 108/58 11/24/20 08:00 Pulse Ox 97 11/24/20 08:00 Intake & Output 11/23/20 11/24/20 11/24/20 18:59 06:59 18:59 Weight 81.647 kg Laboratory Last Values Coronavirus (PCR) Not Detected (Not Detectd) 11/24/20 04:58 11/24/20 12:57 IDENTIFYING DATA: Patient is a 25-year-old male who currently has a guardian and history of polysubstance abuse HPI: Patient presented to the hospital yesterday for evaluation by a officer lieutenant. Patient was petitioned by the peace Of[employer]. stating that "stating that numerous people are following him and want to hurt him. These "people" appeared to be imaginary. Collins said they have been following him for weeks everywhere he went". As per EPS note, patient was observed to be "screaming, yelling, manic, tangential and angry" on observation. Patient apparently also told EPS nurse that he went to [facility] for back pain treatment recently. He had stated that the police were going to falsely imprison him. He believed that the police were after him and he was going to kill them. He became threatening toward staff and agitated. Patient was admitted involuntarily to the mental health unit. Patient did not provide a urine drug screen. Patient apparently is on a deferral and a demand for hearing was filed. Patient was seen today by policy writer typist however was lying in his bed and barely responded to policy writer typist. He did not open his eyes and turned his head away and covered himself with his blanket and refused to answer any questions or acknowledge policy writer typist once again. He was uncooperative with the interview. PAST PSYCHIATRIC HISTORY: Patient has a history of psychosis and substance abuse. Patient was previously on trazodone and Invega. Patient was last admitted to the mental health unit and 08/06 for psychosis and polysubstance abuse. Patient at that time was discharged back to rehab from the inpatient unit. Unknown follow-up. PMH: Hypertension, enlarged heart, hernia ALLERGIES: as per EMR CHEMICAL DEPENDENCY HISTORY: as per HPI FAMILY PSYCHIATRIC/SUBSTANCE USE HISTORY: Unable to obtain SOCIAL HISTORY: Unable to obtain MENTAL STATUS EXAM: General Appearance: Patient appears to be disheveled in appearance, multiple tattoos, stated age is uncooperative and hostile. Patient appears to have poor hygiene and grooming. Behavior: Patient is laying in his bed and uncooperative. Sheets covering his head. Speech: Patient's speech is mumbled. Mood/Affect: Unable to obtain Suicidality/Homicidality: Unable to obtain Perceptions: Unable to obtain Though content/process: Unable to obtain Memory and concentration: Unable to obtain Judgment and insight: poor STRENGTHS/WEAKNESSES: strength is that patient is resilient. Weakness is that patient has poor judgment and is impulsive INTELLECT: average IMPRESSIONS: Psychosis unspecified likely secondary to substance abuse PLAN: -Patient is admitted under involuntary status to MHU for stabilization of psychiatric symptoms and safety. Patient has not signed adult voluntary form and medication consent and is placed in patient's chart. -Medications : Will start patient on paliperidone 3 mg daily at bedtime for psychosis/mood stabilization, trazodone 50 mg daily at bedtime when necessary for insomnia. -Ativan and Haldol PRN for agitation/aggression -Internal Medicine consult to perform medical evaluation and physical. -NRT - nicotine patch -SW on board for discharge planning. Encourage patient to participate in groups to work on coping skills. Patient was previously on a deferral and the demand for hearing has been sent to the courts. demand date set for 12/08/20 at 1030am.
[2020-11-24] MEDS ORDERED: traZODone HCL 50 MG TAB PO SCH (21:00)
[2020-11-24] MEDS: PALIPERIDONE 3 MG TAB.ER.24 PO SCH (22:36)
[2020-11-25] MEDS: NICOTINE 14MG/24HR PATCH TRANSDERM SCH (08:25)
--- NOTE | 2020-11-25 11:54 | P.PN ---
Progress Note - Text Progress Note Date: 11/25/20 Interval History: Patient was seen laying in his bed this morning and continues to be argumentat vicente and dismissive of speech writer. He refused to get up out of bed and did not want to speak to speech writer this morning. He turned his head and covered his head with blankets and repeatedly stated that "I'm fine any need to release me". He also mentioned that he came to the hospital to be "checked out" because he believed that "someone was following me". He denied using any drugs previous to coming in the hospital. He states that his mood is "fine" however remains irritable. He denies any anxiety. He states that he slept fairly lasting. He has very poor insight and judgment and has been refusing his medications on the unit. He repeatedly asked speech writer to "call my guardian so she can release me". At this time patient denies any suicidal or homical ideations, intent or plan. Patient denies any auditory, visual hallucinations. Patient denies any side effects from the medications and has been compliant with meds. Mental Status Exam: General Appearance: Patient appears to be laying in the bed, with multiple tattoos, stated age is uncooperative and hostile. Poor hygiene and grooming. Behavior: Patient is lying in the bed without any agitated behavior. Uncooperative and hostile Speech: Patient's speech is fluent and nonpressured. [place]. Mood/Affect: Mood is "fine", affect is incongruent and irritable Suicidality/Homicidality: Patient denies having any suicidal or homicidal bartolo ation intent or plan. Perceptions: Patient denies any visual hallucinations and denies any auditory hallucinations Though content/process: [place], poverty of content. Demanding. Memory and concentration: Unable to perform Judgment and insight: Poor Assessment Psychosis unspecified likely secondary to substance abuse Intellectual disability Plan: -Patient continues to meet criteria for inpatient psychiatric admission for symptom stabilization and safety. Patient has not signed adult voluntary form and medication consent and was placed in patient's chart. -Medications: Continue with paliperidone 3 mg by mouth daily at bedtime for psychosis/mood stabilization. Trazodone 50 mg daily at bedtime when necessary for insomnia. -When necessary Ativan and Haldol for agitation/aggression. -NRT - nicotine patch -SW on board for discharge planning. Encouraged the patient to participate in milieu. Currently awaiting deferral with commercial attorney and court date. Patient was previously on a deferral and the demand for hearing has been sent to the courts. demand date set for 12/08/20
[2020-11-25] MEDS: LORazepam 1 MG TAB PO PRN (13:30)
[2020-11-25] MEDS: haloperidoL 5 MG TAB PO PRN (13:30)
[2020-11-25] MEDS: PALIPERIDONE 3 MG TAB.ER.24 PO SCH (22:07)
--- NOTE | 2020-11-26 10:09 | P.PN ---
Progress Note - Text Progress Note Date: 11/26/20 Interval History: Patient was seen laying in his bed this morning once again and refused to get out of bed this morning. He again was fairly reluctant to speak with automobile and property underwriter and did not remove the blankets from his face. He continues to perseverate on discharge and wanting to speak with his guardian. He claims that he does not need his medications however shortly after he stated that "if you discharge me ill take my medications at home". He continues to minimize his need for being in the hospital and states that "I don't even know I'm in here". he remains irritable. He denies any anxiety. He states that he slept fairly last night. He has very poor insight and judgment and has been refusing his medications on the unit. He repeatedly asked automobile and property underwriter to "call my guardian". At this time patient denies any suicidal or homical ideations, intent or plan. Patient denies any auditory, visual hallucinations. Patient denies any side effects from the medications and has been compliant with meds. Mental Status Exam: General Appearance: Patient appears to be laying in the bed, with multiple tattoos, stated age is uncooperative. Poor hygiene and grooming. Behavior: Patient is lying in the bed without any agitated behavior. Uncooperative Speech: Patient's speech is fluent and nonpressured. [place]. Mood/Affect: Mood is "fine", affect is incongruent Suicidality/Homicidality: Patient denies having any suicidal or homicidal ideation intent or plan. Perceptions: Patient denies any visual hallucinations and denies any auditory hallucinations Though content/process: [place], poverty of content. Demanding. Focused on discharge and minimizing his symptoms Memory and concentration: Unable to perform Judgment and insight: Chronically Poor Assessment Psychosis unspecified likely secondary to substance abuse Intellectual disability Plan: -Patient continues to meet criteria for inpatient psychiatric admission for symptom stabilization and safety. Patient has not signed adult voluntary form and medication consent and was placed in patient's chart. -Medications: Continue with paliperidone 3 mg by mouth daily at bedtime for psychosis/mood stabilization. Trazodone 50 mg daily at bedtime when necessary for insomnia. -When necessary Ativan and Haldol for agitation/aggression. -NRT - nicotine patch -SW on board for discharge planning. Encouraged the patient to participate in milieu. Patient was previously on a deferral and the demand for hearing has been sent to the courts. demand date set for 12/08/20 at 10 AM.
[2020-11-26] MEDS: NICOTINE 14MG/24HR PATCH TRANSDERM SCH ×2 (10:19→10:22)
[2020-11-26] MEDS: LORazepam 1 MG TAB PO PRN (10:22)
[2020-11-26] MEDS: haloperidoL 5 MG TAB PO PRN (10:22)
[2020-11-26] MEDS: PALIPERIDONE 3 MG TAB.ER.24 PO SCH (22:05)
[2020-11-27] MEDS: NICOTINE 14MG/24HR PATCH TRANSDERM SCH (08:51)
[2020-11-27] MEDS: LORazepam 1 MG TAB PO PRN ×2 (10:10→15:56)
[2020-11-27] MEDS: haloperidoL 5 MG TAB PO PRN ×2 (10:11→15:56)
--- NOTE | 2020-11-27 16:29 | CONS ---
CONSULTATION CHIEF COMPLAINT: Acute psychosis and bipolar depression with a history of substance abuse. HISTORY OF PRESENT ILLNESS: This is another admission for this young man who has a longstanding history of mental health issues and substance abuse. He was last seen in my office last year. Apparently he came to the emergency room and was admitted. At present time, he is lethargic and cannot give a history. REVIEW OF SYSTEMS: He denies headaches, chest pain, shortness of breath, abdominal pain, etc. Past medical history, family history and personal and social histories reveal that he has not had surgery in the past. He does smoke and he has been a drug seeker over the last several years when he has come to the office. He has a family history of substance abuse as well. PHYSICAL EXAMINATION: Blood pressure is 121/74 with a pulse of 69, respirations of 14 and he is afebrile. In GENERAL, he appeared to be slender and somewhat lethargic. HEAD, ears, eyes, nose, mouth and throat are normal as well as can be examined. CHEST is clear. CARDIAC exam sounds like sinus rhythm. ABDOMEN is flat and soft. EXTREMITIES: Normal. NEUROLOGICALLY he is intact. IMPRESSION: 1. Acute psychosis. 2. Probable bipolar disorder. 3. Depression. 4. History of substance abuse. RECOMMENDATIONS: No change in his program at this time. MMODL / IJN: [id number] /
--- NOTE | 2020-11-27 17:21 | P.PN ---
Progress Note - Text Progress Note Date: 11/27/20 This patient was initially admitted following diagnoses: Psychosis unspecified likely secondary to substance abuse I met with this patient today. He is very angry and agitated. He is constantly talking on the phone. He is yelling at somebody in a very loud voice. He has pressured speech or and a lot of profanity in his speech. He is not able to sit still and is very restless he does not want to talk to me other than getting discharged from the hospital. His behavior is quite manic and psychotic at this time. When I tried to talk to him he stated he walked away. He will be maintained on his medication and in the milieu and will be closely monitored.
[2020-11-27] MEDS: PALIPERIDONE 3 MG TAB.ER.24 PO SCH (20:29)
[2020-11-28] MEDS: NICOTINE 14MG/24HR PATCH TRANSDERM SCH (09:13)
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
[2020-11-28] MEDS: LORazepam 1 MG TAB PO PRN (15:22)
[2020-11-28] MEDS: haloperidoL 5 MG TAB PO PRN (15:22)
[2020-11-28] MEDS: PALIPERIDONE 3 MG TAB.ER.24 PO SCH (20:39)
[2020-11-28] MEDS: traZODone HCL 50 MG TAB PO PRN (20:40)
[2020-11-29] MEDS: NICOTINE 14MG/24HR PATCH TRANSDERM SCH (08:33)
[2020-11-29] MEDS ORDERED: hydrOXYzine pamoate 25 MG CAP PO PRN (09:59)
--- NOTE | 2020-11-29 10:04 | P.PN ---
Progress Note - Text Progress Note Date: 11/29/20 (\\) Interval History: Patient was seen laying in his bed this morning once again and refused to get out of bed this morning. He appears to be more awake this morning. He again was fairly proeccupied with discharge and wanting to speak with his guardian once again. He claims that he has been taking his medications over the weekend and states that he is tolerating it well. He continues to be fairly superficial about his treatment and has a relatively poor understanding of it. He continues to minimize his need for being in the hospital and asked insurance underwriter sales once again several times to call his guardian to have him released. He denies any anxiety or any depression today. Patient was fairly superficial with insurance underwriter sales. He claims that he would agree to the and sign a waive and stip with his assistant prosecuting attorney. He states that he slept fairly last night. He did receive a prn of Ativan and Haldol last night for agitation. At this time patient denies any suicidal or homical ideations, intent or plan. Patient denies any auditory, visual hallucinations. Patient denies any side effects from the medications and has been compliant with meds. Mental Status Exam: General Appearance: Patient appears to be thin, tall, laying in the bed, with multiple tattoos, stated age is mildly more cooperative. Poor hygiene and grooming. Behavior: Patient is lying in the bed without any agitated behavior. Mildly more cooperative today. Superficial at times. Speech: Patient's speech is fluent and nonpressured. [place]. Mood/Affect: Mood is "ok", affect is incongruent and constricted Suicidality/Homicidality: Patient denies having any suicidal or homicidal ideation intent or plan. Perceptions: Patient denies any visual hallucinations and denies any auditory hallucinations Though content/process: [place], poverty of content. Demanding. Focused on discharge and minimizing his symptoms Memory and concentration: Alert and oriented 3, improving attention span. Judgment and insight: Chronically Poor, improving mildly Assessment Psychosis unspecified likely secondary to substance abuse Intellectual disability Plan: -Patient continues to meet criteria for inpatient psychiatric admission for symptom stabilization and safety. Patient has not signed adult voluntary form and medication consent and was placed in patient's chart. -Medications: increased paliperidone 6 mg by mouth daily at bedtime for psychosis/mood stabilization. Trazodone 50 mg daily at bedtime when necessary for insomnia. added vistaril prn for anxiety. -When necessary Ativan and Haldol for agitation/aggression. -NRT - nicotine patch -SW on board for discharge planning. Encouraged the patient to participate in milieu. Patient's demand date set for 12/08/20 at 10 AM. Patient claims he would like to sign the waive and stip and is agreeable to the treatment order.
[2020-11-29] MEDS: LORazepam 1 MG TAB PO PRN (11:35)
[2020-11-29 11:36] VITALS: BP 119/57; PULSE 107
[2020-11-29 12:53] VITALS: BMI 18.3
[2020-11-29 17:29] VITALS: TEMP 97.8
[2020-11-29] MEDS: PALIPERIDONE 6 MG TAB.ER.24 PO SCH (20:44)
[2020-11-29] MEDS: traZODone HCL 50 MG TAB PO PRN (20:44)
[2020-11-30] MEDS: NICOTINE 14MG/24HR PATCH TRANSDERM SCH (08:04)
--- NOTE | 2020-11-30 09:08 | P.PN ---
Progress Note - Text Progress Note Date: 11/30/20 Interval History: Patient was seen near the nurses desk this morning and urgently wanted to speak with sheet writer. He appeared to be politer today to sheet writer and offered no overnight complaints. He appears to be more awake this morning. He again was fairly proeccupied with discharge and speaking with his early morning. He states that he has been taking his meds and feels that it is helping him and claims that he was not told by [facility] that he needs to follow up with [facility] and claims that he did not after wards however now states that he wants to follow up with them right after discharge. He claims that he is agreeable to take the Invega sustenna today to ensure complaince. He denies any anxiety or any depression today. He states that he slept fairly last night approximately 5-7 hrs. At this time patient denies any suicidal or homical ideations, intent or plan. Patient denies any auditory, visual hallucinations. Patient denies any side effects from the medications and has been compliant with meds. Mental Status Exam: General Appearance: Patient appears to be thin, tall, laying in the bed, with multiple tattoos, stated age is more cooperative. Improving hygiene and grooming. Behavior: Patient is lying in the bed without any agitated behavior. more cooperative today. Superficial at times. Speech: Patient's speech is fluent and nonpressured. [place]. Mood/Affect: Mood is "fine", affect is incongruent and constricted Suicidality/Homicidality: Patient denies having any suicidal or homicidal ideation intent or plan. Perceptions: Patient denies any visual hallucinations and denies any auditory hallucinations Though content/process: [place], poverty of content. Focused on discharge and speaking with his trade mark attorney Memory and concentration: Alert and oriented 3, improving attention span. Judgment and insight: Chronically Poor, improving mildly Assessment Psychosis unspecified likely secondary to substance abuse Intellectual disability Plan: -Patient continues to meet criteria for inpatient psychiatric admission for symptom stabilization and safety. Patient has not signed adult voluntary form and medication consent and was placed in patient's chart. -Medications: continue with paliperidone 6 mg by mouth daily at bedtime for psychosis/mood stabilization, Trazodone 50 mg daily at bedtime when necessary for insomnia. continue with vistaril prn for anxiety. Ordered Invega SUstenna 234mg IM loading dose today. -When necessary Ativan and Haldol for agitation/aggression. -NRT - nicotine patch -SW on board for discharge planning. Encouraged the patient to participate in milieu. Patient's demand date set for 12/08/20 at 10 AM. Patient claims he would like to sign the waive and stip and is agreeable to the treatment order, will attempt to have trade mark attorney re-visit patient today.
[2020-11-30] MEDS: haloperidoL 5 MG TAB PO PRN (11:16)
[2020-11-30] MEDS ORDERED: PALIPERIDONE IM 234 MG/1.5 ML SYG IM ONE (12:00)
[2020-11-30] MEDS: LORazepam 1 MG TAB PO PRN ×2 (13:03→22:32)
[2020-11-30] MEDS: PALIPERIDONE 6 MG TAB.ER.24 PO SCH (22:30)
[2020-12-01] MEDS: NICOTINE 14MG/24HR PATCH TRANSDERM SCH (08:15)
[2020-12-01] MEDS: LORazepam 1 MG TAB PO PRN (08:53)
--- NOTE | 2020-12-01 09:31 | P.DS ---
Providers Date of admission: 11/24/20 07:10 Expected date of discharge: 12/01/20 Attending physician: Dennis Perez MD Consults: 11/24/20 07:15 Consult Physician Routine Consulting Provider: Andrae Gomez Consult Reason/Comments: H&P for mental health admission Do you want consulting provider notified?: Yes Primary care physician: Andrae Gomez - Discharge Diagnosis(es) (1) Unspecified psychosis Current Visit: Yes Status: Acute Priority: High (2) Intellectual disability Current Visit: Yes Status: Acute Priority: Medium Hospital Course: Admission HPI: Admission note was completed by property underwriter "Patient is a 25-year-old male who currently has a guardian and history of polysubstance abuse. Patient presented to the hospital yesterday for evaluation by a police liaison officer. Patient was petitioned by the peace Of[employer]. stating that "stating that numerous people are following him and want to hurt him. These "people" appeared to be imaginary. Collins said they have been following him for weeks everywhere he went". As per EPS note, patient was observed to be "screaming, yelling, manic, tangential and angry" on observation. Patient apparently also told EPS nurse that he went to [facility] for back pain treatment recently. He had stated that the police were going to falsely imprison him. He believed that the police were after him and he was going to kill them. He became threatening toward staff and agitated. Patient was admitted involuntarily to the mental health unit. Patient did not provide a urine drug screen. Patient apparently is on a deferral and a demand for hearing was filed. Patient was seen today by property underwriter however was lying in his bed and barely responded to property underwriter. He did not open his eyes and turned his head away and covered himself with his blanket and refused to answer any questions or acknowledge property underwriter once again. He was uncooperative with the interview." Hospital course: Upon admission to the unit patient was initially uncooperative isolative and bizarre/paranoid. Patient was however on a deferral and a demand for hearing was filed. Patient ended up signing a waive and stip with his divorce attorney on the day of discharge. Patient was initially isolative however with treatment eventually got along well with other patients on the unit and followed unit protocol. Patient required several prn medications for agitation and anxiety while on the unit. Patient was compliant with the medications and denied any side effects throughout hospital course. Patient was started on paliperidone and titrated up to dose of 6 mg daily at bedtime for mood stabilization/psychosis. Patient was also started on trazodone 50 mg daily at bedtime when necessary for insomnia and Vistaril when necessary for anxiety. Patient was given Invega Sustenna 234 mg IM loading dose on 11/30/20 and will be due for his next injection of 156 mg on 12/07/20 and his monthly dose to be given on 12/28 of 117 mg by [facility]. Patient spo ke of his stressors and engaged in therapy both group and individual. Patient was also seen by medical team for history and physical exam. Throughout the course of the hospitalization patient gradually improved with regards to mood, anxiety, psychosis/paranoia, sleep and return back to his baseline level of functioning and insight which is chronically poor. On the day of discharge patient denied any suicidal or homicidal ideations intent or plan denied any auditory or visual hallucinations. Patient endorsed wanting to live for his health and family. The patient denied any access to guns or weapons. Patient denied any paranoia and did not endorse any delusions. Patient does have a significant history of substance abuse and was counseled on abstaining from all substances including alcohol and marijuana. Patient elected to do outpatient substance use treatment program through [facility]. Patient was also counseled on the medications and need for regular compliance and was encouraged to follow-up with their outpatient appointment for mental health and also for primary care. Prior to discharge a family meeting will be arranged by case management social worker and also contacted patient's guardian to answer any questions and ensure safety upon discharge. Patient will be discharged back to his grandmother's house and he will be having close follow-up with [facility] as he is now on a treatment order. Mental status exam: General Appearance: Patient appears to be tall, thin, multiple tattoos, stated age is alert, more directable, and cooperative. Patient is in no acute distress and has improved hygiene and grooming Behavior: Patient is calmly seated without any agitated behavior. More directable today Speech: Patient's speech is fluent and nonpressured. Mood/Affect: Patient reports their mood is "good", affect is congruent Suicidality/Homicidality: Patient denies having any suicidal or homicidal ideation intent or plan. Perceptions: Patient denies any auditory or visual hallucinations. Though content/process: There is no evidence of any delusional thought content and thought process is linear and goal-directed. Memory and concentration: AOX3, grossly intact for the purposes of this session. Can spell "WORLD" backwards correctly. Judgment and insight: chronically poor, however has improved with guarded prognosis Impression: Psychosis unspecified Intellectual disability Plan: -Continue with discharge today as patient has improved and stabilized psychiatrically and is not currently an imminent threat to himself and/or others. Patient will remain at chronically elevated risk for harm to self and/or others due to his impulsivity and chronically poor insight and judgment. -Continue medications: Paliperidone by mouth 3 mg daily at bedtime to be continued for 5 days then discontinued after that. Patient was given Invega Sustenna 234 mg IM loading dose on 11/30/20 and will be due for his next injection of 156 mg on 12/07/20 and his monthly dose to be given on 12/28 of 117 mg by [facility]. Trazodone 50 mg daily at bedtime when necessary for insomnia. Vistaril 25 mg twice a day when necessary for anxiety. -Patient was counseled on the need for medication compliance and appropriate follow-up at mental health and also primary care for medical issues. Patient verbalized understanding and agreed. -Social work to arrange for and conduct family meeting with family along with patient's guardian to ensure safety upon discharge and answer any questions/concerns. Social work also to arrange for patients follow up appointments with [facility] for psychiatric care along with follow up with primary care provider. -Patient is now on court ordered treatment and will be followed closely by [facility] for his long-acting injections and medications/follow-ups. Patient singed waive and stip with his divorce attorney on day of discharge -Patient counseled on abstaining from recreational drugs and marijuana and alcohol. Was informed/educated on the adverse effects on their physical and mental health. Patient verbally agreed and understood. Patient was offered substance abuse treatment however declined at this time. -Patient was instructed to return to the hospital or seek immediate medical care if their psychiatric or medical symptoms do worsen or reoccur. Allergies Allergy/AdvReac Type Severity Reaction Status Date / Time venom-honey bee Allergy Swelling Verified 11/24/20 06:38 [bee venom (honey bee)] Laboratory Results Coronavirus (PCR) Not Detected (Not Detectd) 11/24/20 04:58 Vital Signs Temp 97.8 F 11/29/20 17:29 Pulse 107 H 11/29/20 11:36 Resp 20 11/27/20 15:55 BP 119/57 11/29/20 11:36 Pulse Ox 96 11/27/20 15:55 Patient Condition at Discharge: Stable Plan - Discharge Summary New Discharge Prescriptions: New traZODone HCL [Desyrel] 50 mg PO HS PRN 30 Days tab PRN Reason: Insomnia Nicotine 14Mg/24Hr Patch [Habitrol] 1 patch TRANSDERM DAILY 14 Days patch Paliperidone [Invega] 3 mg PO HS #5 tab.er.24 Paliperidone IM [Invega Sustenna] 156 mg IM QMONTHLY #1 syr Paliperidone Palmitate [Invega Sustenna] 117 mg IM QMONTHLY #1 ml Acetaminophen Tab [Tylenol] 650 mg PO Q4HR PRN tab PRN Reason: Pain/Discomfort hydrOXYzine pamoate [Vistaril] 25 mg PO BID PRN 30 Days cap PRN Reason: Anxiety Discontinued traZODone HCL 50 mg PO HS PRN PRN Reason: Insomnia ALPRAZolam [Xanax] 1 mg PO TID PRN PRN Reason: Anxiety Discharge Medication List Acetaminophen Tab [Tylenol] 650 mg PO Q4HR PRN tab 12/01/20 [Rx] Nicotine 14Mg/24Hr Patch [Habitrol] 1 patch TRANSDERM DAILY 14 Days patch 12/01/20 [Rx] Paliperidone IM [Invega Sustenna] 156 mg IM QMONTHLY #1 syr 12/01/20 [Rx] Paliperidone Palmitate [Invega Sustenna] 117 mg IM QMONTHLY #1 ml 12/01/20 [Rx] Paliperidone [Invega] 3 mg PO HS #5 tab.er.24 12/01/20 [Rx] hydrOXYzine pamoate [Vistaril] 25 mg PO BID PRN 30 Days cap 12/01/20 [Rx] traZODone HCL [Desyrel] 50 mg PO HS PRN 30 Days tab 12/01/20 [Rx] Follow up Appointment(s)/Referral(s): Andrae Gomez MD [Primary Care Provider] - 1-2 days Activity/Diet/Wound Care/Special Instructions: Activity and diet as tolerated. Avoid the use of street drugs and alcohol. Take all medications as prescribed. When you are in need of refills on your medications please contact your medical provider and/or outpatient psychiatrist to have this done. Please go to scheduled outpatient appointment for aftercare treatment. If symptoms return or become worse, call the crisis line at and/or go to the nearest emergency room for evaluation. Discharge Disposition: HOME SELF-CARE
[2020-12-01] MEDS ORDERED: PALIPERIDONE 3 MG TAB.ER.24 PO SCH (21:00)
== END 2020-12-01 13:29 | disposition home or self-care (01) | DRG 885 ==
LOC: EC 02:11 → 3MHU 07:10
PROVIDERS: ADMIT Psychiatry & Neurology Psychiatry; ATTEND Psychiatry & Neurology Psychiatry
DX: F29 Unspecified psychosis not due to a substance or known physiological condition (principal); F13.20 Sedative, hypnotic or anxiolytic dependence, uncomplicated; F15.20 Other stimulant dependence, uncomplicated; F60.2 Antisocial personality disorder; F70 Mild intellectual disabilities; F12.20 Cannabis dependence, uncomplicated; F17.210 Nicotine dependence, cigarettes, uncomplicated; F20.9 Schizophrenia, unspecified; F31.30 Bipolar disorder, current episode depressed, mild or moderate severity, unspecified; F41.9 Anxiety disorder, unspecified; G47.00 Insomnia, unspecified; I10 Essential (primary) hypertension; Z79.899 Other long term (current) drug therapy; Z82.49 Family history of ischemic heart disease and other diseases of the circulatory system; Z81.3 Family history of other psychoactive substance abuse and dependence; Z20.822 Contact with and (suspected) exposure to COVID-19; Z76.5 Malingerer [conscious simulation]; Z91.030 Bee allergy status; Z87.820 Personal history of traumatic brain injury; R45.1 Restlessness and agitation
CPT/HCPCS: 82075; 87635; 96372; 99285

== ENCOUNTER 2021-01-29 06:07 | Emergency (ER) | payer MEDICARE, OTHER ==
[2021-01-29 06:21] VITALS: BP 131/94; PULSE 107; RESP 18; TEMP 97.8
[2021-01-29] MEDS ORDERED: PENICILLIN VK 500MG STARTER 4 TAB BTL PO STA (06:32)
[2021-01-29] MEDS ORDERED: ALBUTEROL HFA INHALER INHALATION STA (06:35)
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
== END 2021-01-29 07:13 | disposition home or self-care (01) ==
LOC: EC 06:07
DX: Z76.0 Encounter for issue of repeat prescription (principal); K08.89 Other specified disorders of teeth and supporting structures; R06.02 Shortness of breath; I11.9 Hypertensive heart disease without heart failure; J44.9 Chronic obstructive pulmonary disease, unspecified; F41.9 Anxiety disorder, unspecified; F32.9 Major depressive disorder, single episode, unspecified; F20.9 Schizophrenia, unspecified; F17.200 Nicotine dependence, unspecified, uncomplicated; F12.90 Cannabis use, unspecified, uncomplicated; F15.90 Other stimulant use, unspecified, uncomplicated; Z79.51 Long term (current) use of inhaled steroids
CPT/HCPCS: 99284

== ENCOUNTER 2021-02-22 19:30 | Inpatient (IN) | payer MEDICARE, MEDICAID ==
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
[2021-02-22] MEDS ORDERED: LORazepam 2 MG/ML INJ IM STA (20:19)
[2021-02-23] MEDS ORDERED: traZODone HCL 100 MG TAB PO PRN (01:01)
[2021-02-23] MEDS ORDERED: BENZTROPINE MESYLATE 1 MG TAB PO PRN (01:01)
[2021-02-23] MEDS ORDERED: MAG HYDROX/AL HYDROX/SIMETH 30 ML CUP PO PRN (01:02)
[2021-02-23] MEDS ORDERED: MAGNESIUM HYDROXIDE 2,400 MG/10 ML CUP PO PRN (01:02)
[2021-02-23] MEDS ORDERED: ACETAMINOPHEN TAB 325 MG TAB PO PRN (01:02)
[2021-02-23] MEDS ORDERED: LORazepam 2 MG/ML INJ IM PRN (01:05)
[2021-02-23] MEDS ORDERED: HALOPERIDOL LACTATE 5 MG/ML 1 ML VIAL IM PRN (01:05)
[2021-02-23] MEDS: LORazepam 1 MG TAB PO PRN (01:17)
[2021-02-23 01:33] VITALS: RESP 16
[2021-02-23] MEDS: NICOTINE 14MG/24HR PATCH TRANSDERM SCH (09:57)
--- NOTE | 2021-02-23 11:52 | P.HP ---
Psychiatric H&P - . H&P Date: 02/23/21 History & Physical: Allergies Allergy/AdvReac Type Severity Reaction Status Date / Time venom-honey bee Allergy Swelling Verified 02/23/21 01:11 [bee venom (honey bee)] Vital Signs Temp 97.7 F 02/23/21 01:31 Pulse 61 02/23/21 01:31 Resp 16 02/23/21 01:31 BP 121/56 02/23/21 01:31 Pulse Ox 98 02/23/21 01:31 Intake & Output 02/22/21 02/23/21 02/23/21 18:59 06:59 18:59 Weight 62.596 kg Laboratory Last Values Coronavirus (PCR) Not Detected (Not Detectd) 02/22/21 23:22 02/23/21 11:42 IDENTIFYING DATA: Patient is a 25-year-old male who currently has a guardian and history of polysubstance abuse, schizophrenia and intellectual disability HPI: Patient presented to the hospital yesterday for evaluation by a precinct i police sergeant. Patient was petitioned. According to ER report patient was paranoid and threatening to use a gun on people that were chasing him. Patient was a poor historian in the ER and was demanding to see a field support technician several times. Sujit olivarez received Ativan IM before coming onto the unit and once on the unit patient began being agitated and aggressive, labile and required multiple redirections and also a prn of haldol and ativan IM. Patient was seen prior to this and was agreeable to speak to comic writer in the room. Patient was fixated on being discharged and wanting to speak with a field support technician to liban the hospital. He had very poor insight into his condition and believes that his family is unsafe at this time and was exhibiting paranoia. He claims that he was not taking his medications and did not go for his Invega Sustenna monthly injection in January. She was fairly uncooperative and tearful and was denying any auditory or visual hallucinations and denying any suicidal or homicidal ideations intent or plan. She was fairly guarded about his recreational drug use and avoided this question. He did not provide a UDS or any lab work. PAST PSYCHIATRIC HISTORY: Patient has a history of psychosis and substance abuse. Patient was previously on trazodone, lithium and Invega. Patient was last admitted to the mental health unit in November 2020 and at that time ended up signing a waive and stip with his city attorney and was placed on a treatment order. Patient is connected with [facility] however did not show up for his injection last month. PMH: Hypertension, enlarged heart, hernia ALLERGIES: as per EMR CHEMICAL DEPENDENCY HISTORY: as per HPI FAMILY PSYCHIATRIC/SUBSTANCE USE HISTORY: Unable to obtain SOCIAL HISTORY: Unable to obtain MENTAL STATUS EXAM: General Appearance: Patient appears to be disheveled in appearance, multiple tattoos, stated age is uncooperative and hostile. Patient appears to have poor hygiene and grooming. Behavior: Patient is wandering the hallways. agitated at times. tearful at times. Speech: Patient's speech is clear Mood/Affect: Unable to obtain Suicidality/Homicidality: denies Perceptions: denies any AH or Vh Though content/process: Perseverates on discharge and obtaining a field support technician. Very poor insight. Paranoia. Memory and concentration: Unable to obtain Judgment and insight: poor STRENGTHS/WEAKNESSES: strength is that patient is resilient. Weakness is that patient has poor judgment and is impulsive INTELLECT: average IMPRESSIONS: Schizophrenia Intellectual disability Nicotine dependence PLAN: -Patient is admitted under an acitve treatment order to [facility] for stabilization of psychiatric symptoms and safety. Patient has not signed medication consent and is placed in patient's chart. -Medications : Will start patient on paliperidone 3 mg bid for psychosis/mood stabilization, trazodone 50 mg daily at bedtime when for insomnia. Invega sustenna monthly dose will be given tomorrow 117mg IM as he missed his previous dose at [facility] on 02/02. continue with lithium 600mg hs for mood stabilization and melatonin 3mg hs for sleep. -Ativan and Haldol PRN for agitation/aggression -Internal Medicine consult to perform medical evaluation and physical. -NRT - nicotine patch -SW on board for discharge planning. Encourage patient to participate in groups to work on coping skills. Patient is currently on active treatment order 02/23/21 11:51
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
[2021-02-24] MEDS: LITHIUM CARBONATE 300 MG CAP PO SCH ×2 (05:44→20:42)
[2021-02-24] MEDS: PALIPERIDONE 3 MG TAB.ER.24 PO SCH ×3 (05:44→20:43)
[2021-02-24] MEDS: MELATONIN 3 MG TABLET PO SCH ×2 (05:44→20:42)
[2021-02-24] MEDS: traZODone HCL 100 MG TAB PO SCH ×2 (05:45→20:43)
[2021-02-24] MEDS: NICOTINE 14MG/24HR PATCH TRANSDERM SCH (09:56)
[2021-02-24] MEDS: LORazepam 1 MG TAB PO PRN (09:56)
[2021-02-24] MEDS: haloperidoL 5 MG TAB PO PRN (09:56)
[2021-02-24] MEDS: HALOPERIDOL LACTATE 5 MG/ML 1 ML VIAL IM PRN (10:27)
[2021-02-24] MEDS: LORazepam 2 MG/ML INJ IM PRN (10:27)
[2021-02-24] MEDS ORDERED: PALIPERIDONE IM 156 MG/ML SYG IM STA (11:30)
[2021-02-24] MEDS ORDERED: HALOPERIDOL LACTATE 5 MG/ML 1 ML VIAL IM PRN (13:20)
--- NOTE | 2021-02-24 13:27 | P.PN ---
Progress Note - Text Progress Note Date: 02/24/21 Interval History: Patient was seen wandering the hallways earlier this morning and was very agit ated impulsive and tearful. He was perseverating on obtaining a yacht master in suing the hospital. She continues to demand discharge and does not want to speak about anything else. He was very labile today and required a prn IM due to aggression. He continues to have very poor insight into his condition and need for treatment. He was refusing medications yesterday despite being on a court order. Patient was not able to engage with specification writer for very long and was not directable and proceeded to ask him how he can obtain a yacht master. Mental Status Exam: General Appearance: Patient appears to be disheveled in appearance, multiple tattoos, stated age is uncooperative, stated. Patient appears to have poor hygiene and grooming. Behavior: Patient is wandering the hallways. agitated at times. tearful. yelling Speech: Patient's speech is clear Mood/Affect: Unable to obtain, the patient is labile and tearful. Suicidality/Homicidality: denies Perceptions: denies any AH or Vh Though content/process: Perseverates on discharge and obtaining a yacht master. Very poor insight. Paranoia. Memory and concentration: Unable to obtain Judgment and insight: poor Assessment Schizophrenia Intellectual disability Nicotine dependence Plan: -Patient continues to meet criteria for inpatient psychiatric admission for symptom stabilization and safety. Patient has not signed adult voluntary form and medication consent and was placed in patient's chart. -Medications: paliperidone 3 mg bid for psychosis/mood stabilization, trazodone 50 mg daily at bedtime when for insomnia. patient was given Invega sustenna mon thly dose 156mg IM dose today and will be due for his next dose 156mg IM on 03/24. continue with lithium 600mg hs for mood stabilization and melatonin 3mg hs for sleep. Added Haldol IM back up incase patient refuses PO meds as he is on a court order. -When necessary Ativan and Haldol for agitation/aggression. -NRT - nicotine patch -SW on board for discharge planning. Encouraged the patient to participate in milieu. Patient is on an active treatment order.
[2021-02-24] MEDS ORDERED: INVEGA SUSTENNA 117 MG IM ONE (16:00)
[2021-02-25] MEDS ORDERED: traZODone HCL 100 MG TAB PO PRN (09:03)
[2021-02-25] MEDS: NICOTINE 14MG/24HR PATCH TRANSDERM SCH (09:11)
[2021-02-25] MEDS: PALIPERIDONE 3 MG TAB.ER.24 PO SCH ×2 (09:12→21:00)
--- NOTE | 2021-02-25 09:29 | P.PN ---
Progress Note - Text Progress Note Date: 02/25/21 Interval History: Patient was seen wandering the hallways earlier this morning and was persistent in speaking with insurance writer in the office. He appears to be mildly more directable today however continues to be very preoccupied with discharge. Continues to state that he should not be here in the hospital and states that "I'm doing better". He is still endorsing some mild paranoia related to someone harming his family. He denied any overnight complaints. Patient received multiple when necessary's yesterday for agitation and aggression. He appeared to be less labile today and denies any depression or anxiety. He continues to have very poor insight into his condition and need for treatment. He is denying any auditory or visual hallucinations and denying any suicidal or homicidal ideations intent or plan. Mental Status Exam: General Appearance: Patient appears to be disheveled in appearance, multiple tattoos, stated age, superficially cooperative, stated. Patient appears to have improving hygiene and grooming. Behavior: Patient is wandering the hallways. Intrusive Speech: Patient's speech is clear Mood/Affect: She claims his mood is "fine" affect is incongruent. Suicidality/Homicidality: denies Perceptions: denies any AH or Vh Though content/process: Perseverates on discharge. Very poor insight. Paranoia, improving mildly Memory and concentration: Alert and oriented 3, poor attention span. Judgment and insight: Chronically poor Assessment Schizophrenia Intellectual disability Nicotine dependence Plan: -Patient continues to meet criteria for inpatient psychiatric admission for symptom stabilization and safety. Patient has not signed adult voluntary form and medication consent and was placed in patient's chart. -Medications: decreased paliperidone 3 mg HS for psychosis/mood stabilization, changed trazodone 100 mg daily at bedtime prn for insomnia. patient was given Invega sustenna monthly dose 156mg IM dose on 02/24 and will be due for his next dose 156mg IM on 03/24. continue with lithium 600mg hs for mood stabilization and melatonin 3mg hs for sleep. Haldol IM back up incase patient refuses PO meds as he is on a court order. -When necessary Ativan and Haldol for agitation/aggression. -NRT - nicotine patch -SW on board for discharge planning. Encouraged the patient to participate in milieu. Patient is on an active treatment order. likely discharge early next week if patient improves over the weekend
[2021-02-25] MEDS: haloperidoL 5 MG TAB PO PRN (10:16)
[2021-02-25] MEDS ORDERED: diphenhydrAMINE 50 MG/ML 1 ML VIAL IM STA (10:49)
[2021-02-25] MEDS: HALOPERIDOL LACTATE 5 MG/ML 1 ML VIAL IM PRN (10:51)
[2021-02-25] MEDS: LORazepam 2 MG/ML INJ IM PRN (18:12)
[2021-02-25] MEDS: LITHIUM CARBONATE 300 MG CAP PO SCH (21:00)
[2021-02-25] MEDS: MELATONIN 3 MG TABLET PO SCH (21:00)
[2021-02-26] MEDS: NICOTINE 14MG/24HR PATCH TRANSDERM SCH (09:13)
--- NOTE | 2021-02-26 14:28 | P.PN ---
Progress Note - Text Progress Note Date: 02/26/21 Subjective: Patient was seen today as a cross coverage for Dr. Perez. The patient was evaluated, chart reviewed, case discussed with the treatment team. Patient reports fair sleep last night, and appetite was reported as " good ". Patient has not been going to groups and other unit activities. The patient is compliant with his medications and denies any adverse reactions. Patient was loud and demanding in the milieu, was angry because his family didn't answer his phone calls. Patient was not able to process why his family might not answering his phone calls. He was redirected and able to control his behavior. He requested discharge and leaving today. Reports feeling depressed but denies homicidal or suicidal ideation. He was to some degree agitated and irritable. Denies any hallucinations, delusions, paranoid ideation, or manic symptoms. Objective: Vitals has been reviewed. Mental status examination; Appearance: The patient appears stated age, fully groomed, average body built, no specific features. Gait/posture: Normal gait, Normal arm swinging: No abnormal movements. Attitude and behavior: Not Fully engaged, not cooperative, intermittent eye contact. Motor activity: Increased psychomotor activity Speech: Normal tone, rhythm but some degree pressured Mood: "Irritated" Affect: Full affect Thought form: Linear goal-directed, linear, coherent. Poverty of thoughts Thought content: Non-delusional, denies suicidal thoughts, denies homicidal thoughts, denies intentions or plans. Perception: Denies any auditory or visual hallucinations Attention: No impairment. Orientation: Patient is oriented to time place person and situation. Insight: Patient has limited insight about his psychiatric disorder. Judgment: Patient has limited judgment about his psychiatric treatment. Assessment: Schizophrenia Rule out schizoaffective disorder. Intellectual disability Nicotine dependence Plan: Continue inpatient level of care due to need for further monitoring and stabilization Precautions: Continue 15 minutes check for safety. Consider medical consultation if any acute medical issues arise. Provide the patient individual, group therapy, substance use disorder counseling to give better insight and learn coping skills. Medications: Continue lithium for mood stabilization, and Invega for psychotic symptoms and mood stabilization, and melatonin for insomnia. Continue as needed medications for psychiatric emergencies including psychosis, agitation and anxiety. Continue non-psychiatric medications for medical conditions as recommended by the medical team. Discharge patient to OUTPATIENT services upon a stabilization
[2021-02-26] MEDS: LORazepam 2 MG/ML INJ IM PRN (15:42)
[2021-02-26] MEDS: HALOPERIDOL LACTATE 5 MG/ML 1 ML VIAL IM PRN (15:42)
[2021-02-26] MEDS: PALIPERIDONE 3 MG TAB.ER.24 PO SCH (21:12)
[2021-02-26] MEDS: LITHIUM CARBONATE 300 MG CAP PO SCH (21:12)
[2021-02-26] MEDS: MELATONIN 3 MG TABLET PO SCH (21:12)
[2021-02-27] MEDS: NICOTINE 14MG/24HR PATCH TRANSDERM SCH (09:04)
--- NOTE | 2021-02-27 13:58 | P.PN ---
Progress Note - Text Progress Note Date: 02/27/21 Subjective: Patient was seen today as a cross coverage for Dr. Perez. The patient was evaluated, chart reviewed, case discussed with the treatment team. Patient continued to demand discharge, and at times presented very irritated. He is very preoccupied with his family doesn't answer his phone calls and he wants to leave the hospital. Denies feeling depressed, hopeless, or suicidal. Denies any hallucinations, paranoid ideation, or delusions. Denies any manic or psychotic symptoms. Reports continued to have good sleep and appetite, and takes his medications with no side effects. Patient was educated to discuss discharge plan with the primary psychiatric team Objective: Vitals has been reviewed. Mental status examination; Appearance: The patient appears stated age, fully groomed, average body built, no specific features. Gait/posture: Normal gait, Normal arm swinging: No abnormal movements. Attitude and behavior: Not Fully engaged, not cooperative, intermittent eye contact. Motor activity: Increased psychomotor activity Speech: Normal tone, rhythm but some degree pressured Mood: "Irritated" Affect: Full affect Thought form: Linear goal-directed, linear, coherent. Poverty of thoughts Thought content: Non-delusional, denies suicidal thoughts, denies homicidal thoughts, denies intentions or plans. Perception: Denies any auditory or visual hallucinations Attention: No impairment. Orientation: Patient is oriented to time place person and situation. Insight: Patient has limited insight about his psychiatric disorder. Judgment: Patient has limited judgment about his psychiatric treatment. Assessment: Schizophrenia Rule out schizoaffective disorder. Intellectual disability Nicotine dependence Plan: Continue inpatient level of care due to need for further monitoring and stabilization Precautions: Continue 15 minutes check for safety. Consider medical consultation if any acute medical issues arise. Provide the patient individual, group therapy, substance use disorder counseling to give better insight and learn coping skills. Medications: Continue lithium for mood stabilization, and Invega for psychotic symptoms and mood stabilization, and melatonin for insomnia. Continue as needed medications for psychiatric emergencies including psychosis, agitation and anxiety. Continue non-psychiatric medications for medical conditions as recommended by the medical team. Discharge patient to OUTPATIENT services upon a stabilization
[2021-02-27] MEDS: LORazepam 2 MG/ML INJ IM PRN (15:57)
[2021-02-27] MEDS: LITHIUM CARBONATE 300 MG CAP PO SCH (20:17)
[2021-02-27] MEDS: haloperidoL 5 MG TAB PO PRN (20:17)
[2021-02-27] MEDS: MELATONIN 3 MG TABLET PO SCH (20:17)
[2021-02-27] MEDS: PALIPERIDONE 3 MG TAB.ER.24 PO SCH (20:17)
[2021-02-28] MEDS: NICOTINE 14MG/24HR PATCH TRANSDERM SCH (09:57)
[2021-02-28] MEDS: haloperidoL 5 MG TAB PO PRN (10:30)
[2021-02-28] MEDS: LORazepam 1 MG TAB PO PRN ×2 (10:30→16:19)
[2021-02-28] MEDS ORDERED: LITHIUM CARBONATE 300 MG CAP PO SCH (10:30)
[2021-02-28] MEDS: LITHIUM CARBONATE 150 MG CAP PO SCH ×2 (11:28→19:43)
--- NOTE | 2021-02-28 11:59 | P.PN ---
Progress Note - Text Progress Note Date: 02/28/21 Interval History: Patient was seen wandering the hallways earlier today after taking his medicat ions and was persistent on speaking with internal communications writer. He appears to be mildly more directable today however continues to be very preoccupied with discharge. He states that "I've been doing good now can you discharge me". He continues to be impulsive at times and show some lability and was argumentative with internal communications writer. He did receive a haldol po prn and ativan IM prn yesterday however states that the nurses told him to take it and did not state why he needed it. He was not endorsing any paranoia today or any other delusions about his family. He denied any overnight complaints. He appeared to be less labile today and denies any depression or anxiety. He continues to have very poor insight into his condition and need for treatment. He is denying any auditory or visual hallucinations and denying any suicidal or homicidal ideations intent or plan. Mental Status Exam: General Appearance: Patient appears to be disheveled in appearance, multiple tattoos, stated age, superficially cooperative. Patient appears to have improving hygiene and grooming. Behavior: Patient is wandering the hallways. less intrusive Speech: Patient's speech is clear Mood/Affect: She claims his mood is "good" affect is congruent. Suicidality/Homicidality: denies Perceptions: denies any AH or Vh Though content/process: Perseverates on discharge. Very poor insight. Not endorsing any paranoia or delusions today. Memory and concentration: Alert and oriented 3, poor attention span. Judgment and insight: Chronically poor, improving mildly Assessment Schizophrenia Intellectual disability Nicotine dependence Plan: -Patient continues to meet criteria for inpatient psychiatric admission for symptom stabilization and safety. Patient has not signed adult voluntary form and medication consent and was placed in patient's chart. -Medications: Discontinued by mouth paliperidone. continue with trazodone 100 mg daily at bedtime for insomnia. patient was given Invega sustenna monthly dose 156mg IM dose on 02/24 and will be due for his next dose 156mg IM on 03/24. changed to lithium 450 mg bid for mood stabilization and melatonin 3mg hs for sleep. Haldol IM back up incase patient refuses PO meds as he is on a court order. -When necessary Ativan and Haldol for agitation/aggression. -NRT - nicotine patch -SW on board for discharge planning. Encouraged the patient to participate in milieu. Patient is on an active treatment order. likely discharge tomorrow if patient improves overnight and is not requiring IM prns.
[2021-02-28] MEDS: MELATONIN 3 MG TABLET PO SCH (19:43)
[2021-02-28] MEDS ORDERED: traZODone HCL 100 MG TAB PO SCH (21:00)
[2021-03-01 06:47] VITALS: BP 100/57; PULSE 48; TEMP 97.9
--- NOTE | 2021-03-01 08:45 | P.DS ---
Providers Date of admission: 02/23/21 00:58 Expected date of discharge: 03/01/21 Attending physician: Dennis Perez MD Consults: 02/23/21 01:02 Consult Physician Routine Consulting Provider: Noa Jaquez Consult Reason/Comments: H&P and medical Do you want consulting provider notified?: Yes Primary care physician: Stated None - Discharge Diagnosis(es) (1) Schizophrenia Current Visit: Yes Status: Acute Priority: High (2) Intellectual disability Current Visit: Yes Status: Acute Priority: Medium (3) Nicotine dependence Current Visit: Yes Status: Acute Priority: Low Hospital Course: Admission HPI: Admission note was completed by freelance writer "Patient is a 25-year-old male who currently has a guardian and history of polysubstance abuse, schizophrenia and intellectual disability. Patient presented to the hospital yesterday for evaluation by a plain clothes police officer. Patient was petitioned. According to ER report patient was paranoid and threatening to use a gun on people that were chasing him. Patient was a poor historian in the ER and was demanding to see a bread stacker several times. Patient received Ativan IM before coming onto the unit and once on the unit patient began being agitated and aggressive, labile and required multiple redirections and also a prn of haldol and ativan IM. Patient was seen prior to this and was agreeable to speak to freelance writer in the room. Patient was fixated on being discharged and wanting to speak with a bread stacker to liban the hosp ital. He had very poor insight into his condition and believes that his family is unsafe at this time and was exhibiting paranoia. He claims that he was not taking his medications and did not go for his Invega Sustenna monthly injection in January. She was fairly uncooperative and tearful and was denying any auditory or visual hallucinations and denying any suicidal or homicidal ideations intent or plan. She was fairly guarded about his recreational drug use and avoided this question. He did not provide a UDS or any lab work." Hospital course: Upon admission to the unit patient was initially bizarre, aggressive and labile. Patient was however already on a active treatment order. Patient initially required several prn medications due to agitation and aggression however with treatment he got along well with other patients on the unit and followed unit protocol. Patient was compliant with the medications and denied any side effects throughout hospital course. Patient was started on oral paliperidone and since patient missed his Invega Sustenna monthly dose he was given a 156 mg IM dose on 02/24 and tolerated it well. He will be due for his next 156 mg IM dose on 03/24. Patient was started, lithium however changed to 450 mg twice a day for mood stabilization and also started on trazodone and titrate up the dose of 100 mg daily at bedtime for insomnia/mood.. Patient spoke of his stressors and engaged in therapy both group and individual. Patient was also seen by medical team for history and physical exam. Throughout the course of the hospitalization patient gradually improved with regards to mood lability, anxiety, paranoia/psychosis, sleep and return back to his baseline level of functioning. On the day of discharge patient denied any suicidal or homicidal ideations intent or plan denied any auditory or visual hallucinations. Patient endorsed wanting to live for his health and family. The patient denied any access to guns or weapons. Patient denied any paranoia and did not endorse any delusions. Patient does have a significant history of substance abuse and was counseled on abstaining from all substances including alcohol and marijuana. Patient was offered however declined inpatient substance-abuse rehab. Patient elected to do outpatient substance use treatment program through [facility]. Patient was also counseled on the medications and need for regular compliance and was encouraged to follow-up with their outpatient appointment for mental health and also for primary care. Prior to discharge a family meeting will be arranged by social science teacher to answer any questions and ensure safety upon discharge. Mental status exam: General Appearance: Patient appears to be thin, several tattoos, stated age is alert, pleasant, and cooperative. Patient is in no acute distress and has improved hygiene and grooming Behavior: Patient is calmly seated without any agitated behavior. Speech: Patient's speech is fluent and nonpressured. Mood/Affect: Patient reports their mood is "good", affect is congruent Suicidality/Homicidality: Patient denies having any suicidal or homicidal ideation intent or plan. Perceptions: Patient denies any auditory or visual hallucinations. Though content/process: There is no evidence of any delusional thought content and thought process is linear and goal-directed. Memory and concentration: AOX3, grossly intact for the purposes of this session. Can spell "WORLD" backwards correctly. Judgment and insight: chronically poor, however has improved with guarded prognosis Impression: Schizophrenia Intellectual disability Nicotine dependence Plan: -Continue with discharge today as patient has improved and stabilized psychiatrically and is not currently an imminent threat to himself and/or others. Patient will remain at chronically elevated risk for harm to self and/or others due to his impulsivity, chronically poor insight and substance abuse. -Continue medications: Trazodone 100 mg daily at bedtime for insomnia/mood, lithium 450 mg twice a day for mood stabilization and melatonin. Patient was given Invega Sustenna monthly dose of 156 mg IM on 02/24 and tolerated it well and will be due for his next Invega Sustenna dose 156 mg IM on 03/24. -Patient was counseled on the need for medication compliance and appropriate follow-up at mental health and also primary care for medical issues. Patient verbalized understanding and agreed. -Social work to arrange for and conduct family meeting to ensure safety upon discharge and answer any questions/concerns. Social work also to arrange for patients follow up appointments [with [facility]] for psychiatric care along with follow up with primary care provider. -Patient counseled on abstaining from recreational drugs and marijuana and alcohol. Was informed/educated on the adverse effects on their physical and mental health. [Patient verbally agreed and understood]. [Patient was offered substance abuse treatment however declined at this time.] -Patient was instructed to return to the hospital or seek immediate medical care if their psychiatric or medical symptoms do worsen or reoccur. Allergies Allergy/AdvReac Type Severity Reaction Status Date / Time venom-honey bee Allergy Swelling Verified 02/23/21 01:11 [bee venom (honey bee)] Laboratory Results Coronavirus (PCR) Not Detected (Not Detectd) 02/22/21 23:22 Vital Signs Temp 97.9 F 03/01/21 06:46 Pulse 48 L 03/01/21 06:46 Resp 16 03/01/21 06:46 BP 100/57 03/01/21 06:46 Pulse Ox 98 02/23/21 01:31 Patient Condition at Discharge: Stable Plan - Discharge Summary New Discharge Prescriptions: New traZODone HCL [Desyrel] 100 mg PO HS 30 Days tab Nicotine 14Mg/24Hr Patch [Habitrol] 1 patch TRANSDERM DAILY 14 Days patch Paliperidone IM [Invega Sustenna] 156 mg IM QMONTHLY #1 syr [place] Carbonate 450 mg PO BID 30 Days cap Acetaminophen Tab [Tylenol] 650 mg PO Q4HR PRN tab PRN Reason: Pain/Discomfort Continue Melatonin 3 mg PO HS 30 Days tab Benztropine Mesylate 1 mg PO BID Discontinued Paliperidone IM [Invega Sustenna] 234 mg IM QMONTHLY traZODone HCL 100 mg PO HS [place] Carbonate 600 mg PO HS Discharge Medication List Benztropine Mesylate 1 mg PO BID 02/22/21 [History] Acetaminophen Tab [Tylenol] 650 mg PO Q4HR PRN tab 03/01/21 [Rx] [place] Carbonate 450 mg PO BID 30 Days cap 03/01/21 [Rx] Melatonin 3 mg PO HS 30 Days tab 03/01/21 [Rx] Nicotine 14Mg/24Hr Patch [Habitrol] 1 patch TRANSDERM DAILY 14 Days patch 03/01/21 [Rx] Paliperidone IM [Invega Sustenna] 156 mg IM QMONTHLY #1 syr 03/01/21 [Rx] traZODone HCL [Desyrel] 100 mg PO HS 30 Days tab 03/01/21 [Rx] Follow up Appointment(s)/Referral(s): None,Stated [Primary Care Provider] - 1-2 days Activity/Diet/Wound Care/Special Instructions: Activity and diet as tolerated. Avoid the use of street drugs and alcohol. Take all medications as prescribed. When you are in need of refills on your medications please contact your medical provider and/or outpatient psychiatrist to have this done. Please go to scheduled outpatient appointment for aftercare treatment. If symptoms return or become worse, call the crisis line at and/or go to the nearest emergency room for evaluation. Discharge Disposition: HOME SELF-CARE
[2021-03-01] MEDS: NICOTINE 14MG/24HR PATCH TRANSDERM SCH (09:00)
[2021-03-01] MEDS: LITHIUM CARBONATE 150 MG CAP PO SCH (09:01)
== END 2021-03-01 13:12 | disposition home or self-care (01) | DRG 885 ==
LOC: EC 19:30 → 3MHU 02-23 00:58
PROVIDERS: ADMIT Psychiatry & Neurology Psychiatry; ATTEND Psychiatry & Neurology Psychiatry
DX: F20.9 Schizophrenia, unspecified (principal); F31.9 Bipolar disorder, unspecified; F12.20 Cannabis dependence, uncomplicated; F17.210 Nicotine dependence, cigarettes, uncomplicated; F41.9 Anxiety disorder, unspecified; F79 Unspecified intellectual disabilities; G47.00 Insomnia, unspecified; I10 Essential (primary) hypertension; Z59.0 Homelessness; Z79.899 Other long term (current) drug therapy; Z82.49 Family history of ischemic heart disease and other diseases of the circulatory system; Z20.822 Contact with and (suspected) exposure to COVID-19
CPT/HCPCS: 82075; 87635; 96372; 99285

== ENCOUNTER 2021-03-05 | Emergency (ER) | payer MEDICARE, OTHER ==
[2021-03-05 00:26] VITALS: BP 135/84; PULSE 81; RESP 18; TEMP 97.3
[2021-03-05] MEDS ORDERED: KETOROLAC 15 MG/ML 1 ML VIAL IM STA (00:36)
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
== END 2021-03-05 02:42 | disposition home or self-care (01) ==
LOC: EC
DX: M54.5 Low back pain (principal); I10 Essential (primary) hypertension; F17.200 Nicotine dependence, unspecified, uncomplicated; Z91.030 Bee allergy status
CPT/HCPCS: 99282

== ENCOUNTER 2021-04-08 09:54 | Emergency (ER) | payer MEDICARE, OTHER ==
[2021-04-08 09:57] VITALS: BP 105/70; PULSE 112; RESP 20; TEMP 98
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
== END 2021-04-08 10:31 | disposition home or self-care (01) ==
LOC: EC 09:54
DX: Z76.0 Encounter for issue of repeat prescription (principal); I10 Essential (primary) hypertension; J44.9 Chronic obstructive pulmonary disease, unspecified; F17.200 Nicotine dependence, unspecified, uncomplicated; Z91.030 Bee allergy status
CPT/HCPCS: 99281

== ENCOUNTER 2021-06-09 16:51 | Inpatient (IN) | payer MEDICARE, MEDICAID ==
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
[2021-06-09 19:21] LABS: Amphetamine Screen,Urine Detected (NotDetected); Barbiturate Screen,Urine Not Detected (NotDetected); Benzodiazepines Screen,Urine Not Detected (NotDetected); Cocaine Screen,Urine Not Detected (NotDetected); Methadone Screen, Urine Not Detected (NotDetected); Opiate Screen,Urine Not Detected (NotDetected); Oxycodone Screen, Urine Not Detected (NotDetected); Phencyclidine Screen,Urine Not Detected (NotDetected); Tricyclic Antidepressant,Urine Not Detected (NotDetected); Urn Cannabinoid Scrn Detected (NotDetected)
[2021-06-09] MEDS ORDERED: ACETAMINOPHEN TAB 325 MG TAB PO PRN (23:08)
[2021-06-09] MEDS ORDERED: MAG HYDROX/AL HYDROX/SIMETH 30 ML CUP PO PRN (23:08)
[2021-06-09] MEDS ORDERED: LORazepam 1 MG TAB PO PRN (23:08)
[2021-06-09] MEDS ORDERED: MAGNESIUM HYDROXIDE 2,400 MG/10 ML CUP PO PRN (23:08)
[2021-06-09] MEDS ORDERED: LORazepam 2 MG/ML INJ IM PRN (23:14)
[2021-06-09] MEDS ORDERED: haloperidoL 1 MG TAB PO PRN (23:15)
[2021-06-09] MEDS ORDERED: HALOPERIDOL LACTATE 5 MG/ML 1 ML VIAL IM PRN (23:15)
[2021-06-09] MEDS ORDERED: BENZTROPINE MESYLATE 1 MG TAB PO PRN (23:16)
[2021-06-09] MEDS ORDERED: ALBUTEROL INHALER 60 PUFF/8 GM INHALER (MHU) INHALATION PRN (23:16)
[2021-06-09] MEDS ORDERED: NAPROXEN 250 MG TAB PO PRN (23:16)
[2021-06-09] MEDS ORDERED: traZODone HCL 100 MG TAB PO SCH (23:30)
[2021-06-09 23:33] VITALS: BP 110/68; PULSE 69; RESP 16; TEMP 97.3
[2021-06-10] MEDS: MELATONIN 3 MG TABLET PO SCH ×2 (02:04→20:45)
[2021-06-10] MEDS: NICOTINE 14MG/24HR PATCH TRANSDERM SCH ×2 (02:04→08:12)
[2021-06-10] MEDS: LITHIUM CARBONATE 300 MG CAP PO SCH ×2 (02:04→08:12)
[2021-06-10 10:04] LABS: Basophils % (A) 0 %; Eosinophils # (A) 0.5 k/uL (0-0.7); Eosinophils % (A) 6 %; HCT 45.8 % (39.0-53.0); HGB 15.5 gm/dL (13.0-17.5); Lymphocytes % (A) 23 %; MCH 31.6 pg (25.0-35.0); MCHC 33.8 g/dL (31.0-37.0); MCV 93.7 fL (80.0-100.0); Mean Platelet Volume 7.3; Monocytes # (A) 0.5 k/uL (0-1.0); Monocytes % (A) 6 %; Neutrophils # (A) 5.5 k/uL (1.3-7.7); Neutrophils % (A) 64 %; Platelet Count 317 k/uL (150-450); RBC 4.89 m/uL (4.30-5.90); RDW 11.7 % (11.5-15.5); WBC 8.7 k/uL (3.8-10.6)
[2021-06-10 10:13] LABS: ALT 13 U/L (4-49); AST 29 U/L (17-59); African American GFR (CKD) >90 (>60 ml/min/1.73 sqM); Albumin 4.5 g/dL (3.5-5.0); Alkaline Phosphatase 72 U/L (38-126); Anion Gap 8 mmol/L; Blood Urea Nitrogen 11 mg/dL (9-20); Calcium 9.8 mg/dL (8.4-10.2); Carbon Dioxide 24 mmol/L (22-30); Chloride 104 mmol/L (98-107); Glucose 76 mg/dL (74-99); Lithium <0.2 mmol/L; Non-African American GFR(CKD) >90 (>60 ml/min/1.73 sqM); Potassium 5.2 mmol/L (3.5-5.1); Sodium 136 mmol/L (137-145); Total Bilirubin 0.6 mg/dL (0.2-1.3); Total Protein 7.5 g/dL (6.3-8.2)
[2021-06-10] MEDS ORDERED: HALOPERIDOL LACTATE 5 MG/ML 1 ML VIAL IM PRN (10:28)
[2021-06-10] MEDS ORDERED: haloperidoL 1 MG TAB PO PRN (10:28)
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
[2021-06-10 19:32] LABS: Chol/HDL Ratio 3.11; Cholesterol 118 mg/dL (0-200); LDL Cholesterol,Calculated 60.6 mg/dL (0.0-131.0)
[2021-06-10] MEDS: LITHIUM CARBONATE 150 MG CAP PO SCH (20:45)
[2021-06-10] MEDS: traZODone HCL 50 MG TAB PO SCH (20:45)
[2021-06-11] MEDS: LITHIUM CARBONATE 150 MG CAP PO SCH ×2 (08:02→20:08)
[2021-06-11] MEDS: NICOTINE 14MG/24HR PATCH TRANSDERM SCH (08:04)
[2021-06-11] MEDS: PALIPERIDONE 6 MG TAB.ER.24 PO SCH (12:31)
--- NOTE | 2021-06-11 13:00 | PN ---
PROGRESS NOTE DATE OF SERVICE: 06/11/2021. CHIEF COMPLAINT: The patient had gone off his medications. He was having auditory hallucinations with voices telling him to hurt himself. INTERVAL HISTORY: The patient has been doing fair. He had a quiet day yesterday. He spends a fair amount of time in his room. He will come out in the day area. He tends to keep to himself. He does interact a little with others. He has been appropriate in interactions with staff and peers. He did not attend groups yesterday. He said he slept fairly well last night. Today he has been up and mostly has been in his room. He continues to report that he has auditory hallucinations. He says that he has been receiving his Invega Sustenna injection on a regular basis and believes his last injection was in the past 1-2 weeks. He was not sure on specifics. He said he also has been on oral medications, though lost the medications a few weeks ago. He is followed by ACT. When I asked him about whether he approached ACT because of losing medications, he said that he forgot to talk to them about it. Overall, the patient says he feels marginally better since coming into the hospital, though continues to report auditory hallucinations and feels moderately distressed. He tolerates his psychotropic medications. It is noteworthy that his lithium level on 06/10 at 0900 hours was 0.2, even though he had stated that he was not taking oral medications for some period of time. It does not seem that this correlates. MENTAL STATUS EXAM: Patient sat without restlessness. Eye contact was fair. Psychomotor activity was slowed. Speech was monotone. He answered with very brief responses. His thoughts were clear and coherent. He had a very quiet manner, though he did seem to be thoughtful and engaged in the questions I asked. His affect was flat, his mood depressed. He seemed moderately distressed. He reports auditory hallucinations. There were no thoughts of harm. Cognition was clear. ASSESSMENT: I will continue the current diagnosis and treatment plan. I will continue the patient on oral lithium 450 mg twice a day. We will repeat a lithium level on Sunday. I will start the patient on oral Invega 6 mg a day. We will get input from [facility] in regard to continuing his Invega Sustenna. I reviewed medication issues with the patient, including indication, potential side effects, and risks relating to metabolics and movement disorder issues relative to his Invega. I also briefly reviewed lithium toxicity issues. We will focus on stabilization and discharge planning. LACY / VELMA: [id number] /
[2021-06-11 13:28] VITALS: BMI 19.9
[2021-06-11] MEDS: traZODone HCL 50 MG TAB PO SCH (20:08)
[2021-06-11] MEDS: MELATONIN 3 MG TABLET PO SCH (20:08)
--- NOTE | 2021-06-11 20:56 | CONS ---
CONSULTATION DATE OF SERVICE: 06/10/2021 CHIEF COMPLAINT: Major depression and a history of polysubstance abuse. HISTORY OF PRESENT ILLNESS: This is another admission for this 26-year-old male. He is somewhat lethargic at this time, but was admitted for depression. REVIEW OF SYSTEMS: He denies any neurologic problems, seizures, blackouts, headaches, change in vision or hearing, chest pain, shortness of breath, abdominal pain, vomiting, melena, hematochezia, hematemesis, renal failure, urinary complaints, etc. Past medical history, family history, personal and social histories are otherwise unremarkable or found in his admitting summary. He has had a longstanding history of multiple substance abuse. PHYSICAL EXAMINATION: Blood pressure is 115/65 with a pulse of 83, respirations of 15 and he is afebrile. In general, he appeared to be slender and somewhat drowsy. He had multiple tattoos. Head, ears, eyes, nose, mouth and throat were otherwise grossly normal. Chest is clear. Cardiac exam is normal. The abdomen is flat, soft and nontender. Extremities: Normal. Neurologically he is intact. IMPRESSION: 1. Major depression. 2. History of polysubstance abuse. RECOMMENDATIONS: None. MMODL / IJN: [id number] /
[2021-06-12] MEDS: LITHIUM CARBONATE 150 MG CAP PO SCH ×2 (08:21→20:29)
[2021-06-12] MEDS: NICOTINE 14MG/24HR PATCH TRANSDERM SCH (08:21)
[2021-06-12] MEDS: PALIPERIDONE 6 MG TAB.ER.24 PO SCH (08:21)
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
[2021-06-12] MEDS: MELATONIN 3 MG TABLET PO SCH (20:29)
[2021-06-12] MEDS ORDERED: traZODone HCL 100 MG TAB PO SCH (21:00)
[2021-06-13] MEDS: PALIPERIDONE 6 MG TAB.ER.24 PO SCH (09:04)
[2021-06-13] MEDS: LITHIUM CARBONATE 150 MG CAP PO SCH (09:04)
[2021-06-13] MEDS: NICOTINE 14MG/24HR PATCH TRANSDERM SCH (09:05)
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
== END 2021-06-13 12:25 | disposition home or self-care (01) | DRG 885 ==
LOC: EC 16:51 → EEVIPCON 16:51 → 3MHU 22:01
PROVIDERS: ADMIT Psychiatry & Neurology Psychiatry; ATTEND Psychiatry & Neurology Psychiatry
DX: F31.9 Bipolar disorder, unspecified (principal); R45.851 Suicidal ideations; F15.20 Other stimulant dependence, uncomplicated; F20.9 Schizophrenia, unspecified; F12.20 Cannabis dependence, uncomplicated; F17.200 Nicotine dependence, unspecified, uncomplicated; F41.9 Anxiety disorder, unspecified; F79 Unspecified intellectual disabilities; Z20.822 Contact with and (suspected) exposure to COVID-19; F90.9 Attention-deficit hyperactivity disorder, unspecified type; G47.00 Insomnia, unspecified; I10 Essential (primary) hypertension; J44.9 Chronic obstructive pulmonary disease, unspecified; Z56.0 Unemployment, unspecified; Z79.899 Other long term (current) drug therapy; Z82.49 Family history of ischemic heart disease and other diseases of the circulatory system
CPT/HCPCS: 80053; 80061; 80178; 80306; 82075; 83036; 84443; 85025; 87635; 99285

== ENCOUNTER 2021-09-08 13:58 | Inpatient (IN) | payer MEDICARE, MEDICAID ==
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
[2021-09-08] MEDS ORDERED: ACETAMINOPHEN TAB 325 MG TAB PO PRN (17:23)
[2021-09-08] MEDS ORDERED: MAG HYDROX/AL HYDROX/SIMETH 30 ML CUP PO PRN (17:23)
[2021-09-08] MEDS ORDERED: MAGNESIUM HYDROXIDE 2,400 MG/10 ML CUP PO PRN (17:23)
[2021-09-08] MEDS ORDERED: LORazepam 1 MG TAB PO PRN (17:23)
[2021-09-08] MEDS ORDERED: LORazepam 2 MG/ML INJ IM PRN (17:28)
[2021-09-08] MEDS ORDERED: HALOPERIDOL LACTATE 5 MG/ML 1 ML VIAL IM PRN (17:29)
[2021-09-08] MEDS ORDERED: haloperidoL 5 MG TAB PO PRN (17:29)
[2021-09-08] MEDS ORDERED: ALBUTEROL HFA INHALER INHALATION PRN (17:30)
[2021-09-08 19:25] VITALS: TEMP 97.6
[2021-09-08] MEDS: NICOTINE 14MG/24HR PATCH TRANSDERM SCH (21:47)
[2021-09-08] MEDS: LITHIUM CARBONATE 300 MG CAP PO SCH (21:50)
[2021-09-08] MEDS: traZODone HCL 100 MG TAB PO SCH (21:51)
[2021-09-08] MEDS: BENZTROPINE MESYLATE 1 MG TAB PO SCH (21:51)
[2021-09-08] MEDS: MELATONIN 3 MG TABLET PO SCH (21:53)
[2021-09-09] MEDS: NICOTINE 14MG/24HR PATCH TRANSDERM SCH ×2 (08:46→08:55)
[2021-09-09] MEDS: BENZTROPINE MESYLATE 1 MG TAB PO SCH ×2 (08:46→21:18)
[2021-09-09] MEDS: LITHIUM CARBONATE 300 MG CAP PO SCH (08:46)
[2021-09-09 08:55] VITALS: RESP 20
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
--- NOTE | 2021-09-09 19:53 | CONS ---
CONSULTATION CHIEF COMPLAINT: Paranoid schizophrenia with severe depression and suicidal thoughts. HISTORY OF PRESENT ILLNESS: This is another of many admissions for this 26-year-old white male with schizophrenia. He has been seen in the office occasionally, but he was very noncompliant and has had a huge problem with substance abuse and drug addiction in the past. Apparently he became depressed and suicidal and came to the emergency room. He was admitted. REVIEW OF SYSTEMS: He denies any headaches, syncope, seizures, chest pain, shortness of breath, abdominal pain, vomiting, diarrhea, urinary complaints, etc. Past medical history, family history, and personal and social histories are all otherwise unremarkable or noncontributory. He is supposed to be on medications, but has not been. PHYSICAL EXAMINATION: Blood pressure is 118/69 with a pulse of 83, respirations of 16. He is afebrile. In general he appeared to be slender and very depressed. He has multiple tattoos. Head, ears, eyes, nose, mouth are otherwise normal. Chest is clear. Cardiac exam is normal. The abdomen is flat, soft and nontender. Extremities are normal. Neurologically he is intact. He is admitted to the hospital with diagnoses: 1. Acute psychosis. 2. Paranoid schizophrenia. 3. Suicidal thoughts. 4. History of substance abuse. RECOMMENDATIONS: None at this time. Thank you. Respectfully, Andrae Gomez II, M.D. LACY / VELMA: [id number] /
[2021-09-09] MEDS: traZODone HCL 100 MG TAB PO SCH (21:18)
[2021-09-09] MEDS: MELATONIN 3 MG TABLET PO SCH (21:19)
[2021-09-10 08:42] LABS: Basophils % (A) 0 %; Eosinophils # (A) 0.5 k/uL (0-0.7); Eosinophils % (A) 7 %; HCT 47.7 % (39.0-53.0); HGB 15.8 gm/dL (13.0-17.5); Lymphocytes # (A) 1.7 k/uL (1.0-4.8); Lymphocytes % (A) 21 %; MCH 31.6 pg (25.0-35.0); MCV 95.7 fL (80.0-100.0); Mean Platelet Volume 7.6; Monocytes # (A) 0.5 k/uL (0-1.0); Monocytes % (A) 7 %; Neutrophils # (A) 5.2 k/uL (1.3-7.7); Neutrophils % (A) 65 %; Platelet Count 328 k/uL (150-450); RBC 4.98 m/uL (4.30-5.90); RDW 11.6 % (11.5-15.5)
[2021-09-10] MEDS: BENZTROPINE MESYLATE 1 MG TAB PO SCH ×2 (08:44→21:07)
[2021-09-10] MEDS: NICOTINE 14MG/24HR PATCH TRANSDERM SCH (08:44)
[2021-09-10 08:48] VITALS: BP 100/60; PULSE 109
[2021-09-10 08:58] LABS: ALT 17 U/L (4-49); AST 27 U/L (17-59); African American GFR (CKD) >90 (>60 ml/min/1.73 sqM); Albumin 4.4 g/dL (3.5-5.0); Alkaline Phosphatase 59 U/L (38-126); Anion Gap 11 mmol/L; Blood Urea Nitrogen 11 mg/dL (9-20); Calcium 9.7 mg/dL (8.4-10.2); Carbon Dioxide 22 mmol/L (22-30); Chloride 103 mmol/L (98-107); Glucose 79 mg/dL (74-99); Lithium 0.6 mmol/L; Non-African American GFR(CKD) >90 (>60 ml/min/1.73 sqM); Sodium 136 mmol/L (137-145); Total Bilirubin 0.7 mg/dL (0.2-1.3); Total Protein 7.4 g/dL (6.3-8.2)
[2021-09-10 09:02] LABS: Potassium 5.2 mmol/L (3.5-5.1)
[2021-09-10] MEDS: LITHIUM CARBONATE 300 MG CAP PO SCH (09:38)
[2021-09-10 16:14] LABS: LDL Cholesterol,Calculated 61.2 mg/dL (0.0-131.0); VLDL Calculation 18.32 mg/dL (5.00-40.00)
--- NOTE | 2021-09-10 16:54 | PN ---
PROGRESS NOTE DATE OF SERVICE: 09/10/2021. CHIEF COMPLAINT: The patient was depressed. He had suicidal thinking with a plan to shoot himself with a gun. He does not own a gun. INTERVAL HISTORY: Patient has been doing fair. He had a quiet day yesterday. He comes out on the unit. He wanders about. He has been cooperative with care. He interacts some with others. He did not attend groups yesterday. He slept fairly well last night. Today he has been up. He has spent a fair amount of the morning in his room. He did not attend groups today. Overall he reports feeling better. He says he has a better mood and outlook. He was somewhat vague as to factors that seemed to set off things leading to him coming to the hospital. The main factor that he focused on was that he had missed medications for about two days and thinks that that set off some of his hallucinations and increasing anxiety. He was not clear as to what set off the situation where he did not take medications. He has been cooperative with care. He tolerates his psychotropic medications. It is noted that he received his last Invega Sustenna 234 mg on 08/30. His lithium level on admission was 0.6. MENTAL STATUS EXAM: Patient sat without restlessness. He gave fairly good eye contact. He answered questions with brief responses. He did not say a lot. His affect was somewhat blunted. He presented in a friendly, quiet manner. His mood was reserved though not clearly down or depressed. He did not appear to be significantly distressed. He made some references to having auditory hallucinations that seemed to be declining. He also made indications that thoughts about self-harm have receded. He was oriented and alert. ASSESSMENT: I will continue the current diagnosis and treatment plan. I will continue psychotropic medications the same. We discussed discharge planning issues. The patient is hopeful to be discharged fairly soon. He seems to be doing considerably better than during a previous admission. We will focus on stabilization and discharge planning. MMODL / IJN: [id number] /
[2021-09-10] MEDS: MELATONIN 3 MG TABLET PO SCH (21:07)
[2021-09-10] MEDS: traZODone HCL 100 MG TAB PO SCH (21:07)
[2021-09-11] MEDS: LITHIUM CARBONATE 300 MG CAP PO SCH (09:17)
[2021-09-11] MEDS: BENZTROPINE MESYLATE 1 MG TAB PO SCH ×2 (09:19→21:30)
--- NOTE | 2021-09-11 20:36 | PN ---
PROGRESS NOTE DATE OF SERVICE: 09/11/2021. CHIEF COMPLAINT: The patient was depressed. He had suicidal thinking with a plan to shoot himself with a gun. He did not own a gun. INTERVAL HISTORY: The patient has been doing fairly well. He had a quiet day yesterday. He spent much of the time in his room. He will come out a little bit and wander, though he does not really interact with others. He did not attend groups. He said he slept well last night. Today he has been up. Again he mostly has been in his room. He voiced no specific complaints or concerns. He continues to be focused on the idea of when he would be able to be discharged. He notes that his mood is good and he tolerates his medications. His lithium level yesterday morning was 0.6. Overall, the patient seems to be doing fairly well. He remains mostly self-involved though is appropriate in his interaction with staff and peers. MENTAL STATUS EXAM: Patient gave fair eye contact. Psychomotor activity was somewhat slow. He answered questions appropriately. He responded with brief answers, though his thoughts were clear and coherent. His affect was somewhat blunted. He had a quiet manner. He did smile some. He seemed relaxed. His mood was even. He did not appear to be distressed. He continues to show some indications of response to internal stimuli. He has not made any indication of thoughts of harm. He is oriented and alert. ASSESSMENT: I will continue the current diagnosis and treatment plan. I will continue psychotropic medications the same. Patient appears to be doing fairly well with his medications. He is not showing significant side effects. His lithium level is in a therapeutic range. We will need to coordinate with [facility]. I would anticipate the patient being discharged fairly soon. MMODL / ROBERTN: [id number] /
[2021-09-11] MEDS: MELATONIN 3 MG TABLET PO SCH (21:30)
[2021-09-11] MEDS: traZODone HCL 100 MG TAB PO SCH (21:30)
[2021-09-12] MEDS: LITHIUM CARBONATE 300 MG CAP PO SCH (09:16)
[2021-09-12] MEDS: BENZTROPINE MESYLATE 1 MG TAB PO SCH (09:16)
--- NOTE | 2021-09-12 13:43 | DS ---
DISCHARGE SUMMARY DATE OF SERVICE: 09/12/2021. DATE OF ADMISSION: 09/08/2021. DATE OF DISCHARGE: 09/12/2021 ADMISSION AND DISCHARGE DIAGNOSES: 1. Schizophrenia. 2. Substance use disorder. 3. Methamphetamine use disorder. HISTORY OF PRESENTING ILLNESS: The patient is a 26-year-old male. He has long-term psychiatric issues. He has had multiple past psychiatric hospitalizations. He presented to the ED today coming in on his own with suicide thoughts and a plan to shoot himself with a gun. It is noted that he does not own any firearms though said he could access a firearm through friends. He was having auditory hallucinations, with command hallucinations telling him to kill himself. He felt increasingly depressed. He was stressed by being homeless. He said that he had lost contact with family as he had "burned those bridges." He had poor sleep and appetite. He has a significant history of substance use issues and was positive for methamphetamines, amphetamines, and marijuana during his last admission, which was in May. He said he has not used drugs since then. His urine drug screen on this admission is negative for abusive substances. The patient is followed by [facility]. He received Invega Sustenna 234 mg IM on 08/30/2021. In addition, he is on lithium 900 mg a day, trazodone 100 mg a day and Cogentin 1 mg twice a day. He was admitted for further evaluation. MENTAL STATUS EXAM: The patient had normal psychomotor activity. He was not spontaneous in his interactions. His speech was minimal. He had a soft monotone voice. He showed depressed mood and constricted affect. He denied thoughts of harm at the time of the interview. He also denied hallucinations when he was interviewed on admission. He was oriented and alert. COURSE OF HOSPITALIZATION: Patient was admitted for comprehensive medical psychiatric and psychosocial evaluation. We engaged the patient in individual and group therapeutic activities. He was continued on his outpatient medications, with the same dosing. Early on in his hospital stay, the patient seemed to show improvement in his mood. He was cooperative with care. He tended to keep to himself and spent most of his time in his room. He did not voice any significant complaints or concerns. He was stating even early on that he was in a better mood and had a better outlook. When we tried to discuss issues that led to his coming into the hospital, he was vague as to why his mood went down and he had such distressing thoughts as compared to how he was feeling on the unit. Throughout his hospital stay, he maintained a fairly even mood and positive banter in his interactions. He was able to engage appropriately in discharge planning. CONDITION AT DISCHARGE: Patient was stable. His mood was improved. He voiced no thoughts of harm to self or others. He tolerates his psychotropic medications. RECOMMENDATIONS: DISCHARGE MEDICATIONS: Include lithium carbonate 900 mg a day, Cogentin 1 mg twice a day and trazodone 100 mg a day. He will be due for Invega Sustenna 234 mg IM on 09/27/2021. [facility]. Please see discharge packet for details. MMODL / IJN: [id number] /
[2021-09-27] MEDS ORDERED: PALIPERIDONE IM 234 MG/1.5 ML SYG IM SCH (09:00)
== END 2021-09-12 13:20 | disposition home or self-care (01) | DRG 885 ==
LOC: EC 13:58 → 3MHU 17:11
PROVIDERS: ADMIT Psychiatry & Neurology Psychiatry; ATTEND Psychiatry & Neurology Psychiatry
DX: F20.0 Paranoid schizophrenia (principal); R45.851 Suicidal ideations; F12.90 Cannabis use, unspecified, uncomplicated; F15.10 Other stimulant abuse, uncomplicated; F17.200 Nicotine dependence, unspecified, uncomplicated; F31.9 Bipolar disorder, unspecified; F79 Unspecified intellectual disabilities; F90.9 Attention-deficit hyperactivity disorder, unspecified type; I10 Essential (primary) hypertension; J44.9 Chronic obstructive pulmonary disease, unspecified; Z59.00 Homelessness unspecified; Z79.899 Other long term (current) drug therapy; Z82.49 Family history of ischemic heart disease and other diseases of the circulatory system; Z91.19 Patient's noncompliance with other medical treatment and regimen; Z20.822 Contact with and (suspected) exposure to COVID-19
CPT/HCPCS: 80053; 80061; 80178; 82075; 83036; 84443; 85025; 87635; 99285

== ENCOUNTER 2021-09-18 18:19 | Emergency (ER) | payer MEDICARE, MEDICAID ==
[2021-09-18 20:30] VITALS: BP 121/79; PULSE 68; RESP 16; TEMP 97.6
== END 2021-09-19 08:00 | disposition left against medical advice (07) ==
LOC: EC 18:19
DX: F99 Mental disorder, not otherwise specified (principal); Z53.21 Procedure and treatment not carried out due to patient leaving prior to being seen by health care provider
CPT/HCPCS: 99499

== ENCOUNTER 2022-01-09 02:50 | Emergency (ER) | payer MEDICARE, OTHER ==
[2022-01-09 02:57] VITALS: BP 132/87; PULSE 104; RESP 18; TEMP 98.6
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
== END 2022-01-09 04:24 | disposition home or self-care (01) ==
LOC: EC 02:50
DX: J44.9 Chronic obstructive pulmonary disease, unspecified (principal); F17.200 Nicotine dependence, unspecified, uncomplicated; I10 Essential (primary) hypertension; Z91.030 Bee allergy status
CPT/HCPCS: 99283